=== PATIENT | male | born 1940 | race Caucasian/White ===

== ENCOUNTER 2020-07-08 20:00 | Inpatient (IN) | payer MEDICARE, MEDICAID, SELFPAY ==
[2020-07-08 20:07] VITALS: BP 77/44; PULSE 62; RESP 16; TEMP 36.3; O2SAT 92; BMI 19.8
--- NOTE | 2020-07-08 20:20 | XRR_ITS ---
PROCEDURE INFORMATION: Exam: XR Chest, 1 View Exam date and time: 07/08/2020 8:41 PM Age: 79 years old Clinical indication: Fever; Additional info: AMS TECHNIQUE: Imaging protocol: XR of the chest Views: 1 view. COMPARISON: CR Chest 2 views* [id number] 07/19/2013 2:19 PM FINDINGS: Lungs: Stable COPD . Interval appearance of cchf-gd-ibrsgupa peripheral opacities bilaterally most consistent with pneumonia. Pleural space: Unremarkable. No pleural effusion. No pneumothorax. Heart/Mediastinum: Unremarkable. No cardiomegaly. Vasculature: IVC filter. Bones/joints: Postoperative metallic fixation of the cervical spine with or without metallic artifact. XR/XR chest 1V portable [id number] IMPRESSION: Interval appearance of [id number] peripheral opacities bilaterally most consistent with pneumonia.
--- NOTE | 2020-07-08 20:20 | ECG_ITS ---
[facility] Test Date: 2020-07-08 Pat Name: Ricardo Washington Department: Room: Gender: Male Supervisor Graphite: : 1940 Requested By: Ignacia Pacheco Order Number: [id number] Hunter MD: Maye Tinsley M.D. Measurements Intervals [place] Rate: 61 P: 57 [place]: 177 QRS: 28 QRSD: 90 T: 112 QT: 484 QTc: 489 Interpretive Statements SINUS RHYTHM WITH OCCASIONAL SUPRAVENTRICULAR PREMATURE COMPLEXES NONSPECIFIC T-WAVE ABNORMALITY PROLONGED QT INTERVAL No previous ECG available for comparison Electronically Signed On 07-09-2020 18:22:37 PROBATION WORKER by Maye Tinsley M.D. [id number] f
--- NOTE | 2020-07-08 20:30 | W.ED.AMS ---
HPI - Altered Mental Status General: Chief Complaint: Altered Mental Status Stated Complaint: fever, no appetite, Time Seen by Provider: 07/08/20 20:19 History of Present Illness: HPI narrative: This patient is a 79-year-old male who comes in today with confusion and weakness. He has been running fevers per his for the past several days as well as having severe diarrhea. The history is very confusing. She said he had his gallbladder removed a couple of weeks ago but had recovered well. She was diagnosed with Covid. She does not recall what day that was but she said the health department told her she would be off quarantine on the and that the patient would be off quarantine on the . She also tells me that he was seen at the hospital in [place] with chest pains following his gallbladder surgery. I gather that his blood pressure may been low at that time because she said the nurse practitioner wanted to take him off his blood pressure medicine. Is not clear if they did that or not. His is also concerned that he may have taken 2 doses of his regular daily medicines this morning. He has been weak and ill for several days but the confusion started just today. The patient also has a history of thoracic and Abdominal aortic aneurysms. The abdominal aneurysms have been treated but the thoracic has not. He is on metoprolol 25 mg daily. He is also on plavix. complaint: altered mental status, confusion and weakness Onset (ago): day(s) (Several) Timing confirmed by: spouse Severity: severe Consistency of symptoms: Getting Worse Context: recent fever and other (Covid exposure) Review of Systems General: Reports: ROS unobtainable due to mental status [facility] ED PFSH: Medical History (Updated 07/09/20 @ 15:10 by Jeffery Lawton MD) Abdominal aortic aneurysm 3.2 cm in 2013 Chronic kidney disease Dysphagia Responsive to Cardizem Hypertension Spondylolisthesis at L5-S1 level Surgical History History of total knee arthroplasty Hx of cataract surgery Hx of spinal fusion Status post cholecystectomy Family History Other CAD (coronary artery disease) Cancer Family history of premature coronary artery disease Stroke Social History Smoking and tobacco status: former smoker Alcohol intake: never Lives independently: Yes Household members: spouse Housing: House Marital status: Physical Exam Const: GENERAL APPEARANCE: cooperative and comfortable HENMT: HEAD & SCALP: normal to inspection FACE & SINUS: normal facial exam Eye: GENERAL EYE: appearance normal, both eyes and all related structures Neck/C-Spine: COMMON NORMALS: supple, no meningeal signs and no JVD Chest: COMMONS NORMALS: normal inspection of the chest Resp: COMMON NORMALS: normal respiratory effort, No use of accessory muscles and clear to auscultation bilaterally AUSCULTATION: clear to auscultation bilaterally Cardio: COMMON NORMALS: no JVD, regular rate, regular rhythm and No murmurs present (Cardio) RATE: regular rate RHYTHM: regular rhythm GI: COMMON NORMALS: Normal to inspection, nondistended, normoactive bowel sounds present, Soft to palpation and non-tender INSPECTION: Yes normal to inspection AUSCULTATION: Yes normoactive bowel sounds PALPATION: Yes Soft to palpation Back/Pelvis: COMMON NORMALS: thoracic and lumbar spine normal to inspection Extremity: COMMON NORMALS: normal to inspection Neuro: COMMON NORMALS: moves all extremities, no focal motor deficits and no sensory deficits noted MENINGEAL SIGNS: Yes no meningeal signs Psych: SPEECH: Yes slow MOOD & AFFECT: Yes Flat affect present Skin: COMMON NORMALS: no rashes or lesions noted and turgor normal GENERAL SKIN EXAM: no rashes or lesions noted and turgor normal Course ED course: Patient had a room air sat of 80% on my initial evaluation. HR was 66 initially, then decreasing to the 40's at times. BP was 70 systolic initially. Patient was placed on oxygen and with resting and time his sat came up into the high 90's on 3 L NC. His BP increase with a 1 liter fluid bolus, but the settled at around 80 systolic. It is possible that he took double his usual metoprolol dose which could cause the bradycardia and hypotension. He is also likely dehydrated secondary to severe diarrhea for several days. CXR reflects a pneumonia type pattern that I feel is consistent with COVID. His inflammatory markers are up, consistent with COVID and he has been living with his who was symptomatic for COVID within the past two weeks. His rapid COVID swab was neg here - but I will continue to treat him as a PUI or positive patient. We have no beds here and I will try to transfer him to another facility for a viral ICU bed. I am hesitant to try to raise him BP much higher - given that he has a long standing thoracic aortic aneurysm. Renal function is elevated - and I don't have prior labs for comparison. Vital Signs: Vital signs: Vital Signs Temperature 97.8 F 07/10/20 00:00 Pulse Rate 53 L 07/10/20 03:15 Respiratory Rate 20 H 07/10/20 03:15 Blood Pressure 134/79 07/10/20 03:15 Pulse Oximetry 96 07/10/20 03:15 MDM - Altered Mental Status Lab Data: Labs: Lab Results 07/08/20 07/08/20 07/08/20 Range/Units 20:32 20:32 20:32 WBC 9.8 (4.0-10.0) 10^3/ uL RBC 3.85 L (4.1-5.3) 10^6/u L Hgb 11.9 (11.7-16.6) g/dL Hct 36.8 L (42.0-52.0) % MCV 95.6 H (80-94) fL MCH 30.9 (28.0-34.0) pg MCHC 32.3 (30.0-36.0) g/dL RDW 13.7 (12.1-15.1) % Plt Count 259 (130-400) 10^3/c mm MPV 10.4 (7.4-10.4) fL Neut % (Auto) 81.0 % Lymph % (Auto) 12.9 % [place] % (Auto) 5.2 % Eos % (Auto) 0.0 % Baso % (Auto) 0.1 % Neut # (Auto) 7.90 H (1.8-7.7) 10^3/u L Lymph # (Auto) 1.3 (0.8-4.8) 10^3/u L [place] # (Auto) 0.5 (0.2-0.9) 10^3/u L Eos # (Auto) 0.0 (0.0-0.8) 10^3/u L Baso # (Auto) 0.0 (0.0-0.1) 10^3/u L Nucleated RBC % (a uto) 0 % Nucleated RBCs # 0.0 /100WBC PT (12.1-14.9) SECO NDS INR (0.8-1.2) Fibrinogen (174-498) mg/dL D-Dimer (0-0.59) ug/mIFE U Specimen Type Sample Site ABG pH (7.35-7.45) ABG pCO2 (35-45) mmHg ABG pO2 (80.0-100.0) mmH g ABG HCO3 (22-26) mmol/L ABG Base Excess (-2.0-2.0) mmol/ L Nathaniel Test Hematocrit (42-52) % O2 Delivery Device O2 Liters/Min % Patient Support Specialist ID Sodium 140 (136-145) mmol/L Potassium 3.7 (3.5-5.1) mmol/L Chloride 98 (98-107) mmol/L Carbon Dioxide 26 (22-29) mmol/L Anion Gap 19.7 H (5-19) BUN 39 H (8-23) mg/dL Creatinine 2.0 H (0.7-1.2) mg/dL GFR Calculation Not Reportable Glucose 110 (65-115) mg/dL Calculated Osmolal ity 300 H (285-295) mOsm/k g Lactic Acid (0.5-2.2) mmol/L Calcium 9.0 (8.5-10.5) mg/dL Magnesium 2.2 (1.7-2.3) mg/dL Ferritin 1575 H (30-400) ng/mL Total Bilirubin 0.9 (0.15-1.2) mg/dL AST 22 (0-40) U/L ALT 11 (0-41) U/L Alkaline Phosphata se 79 (40-130) IU/L Ammonia 29 (16-60) umol/L Lactate Dehydrogen ase 385 H (135-225) U/L Creatine Kinase 45 (39-308) U/L Troponin T Baselin e (0-15) ng/L Troponin T Hi Sens 6Hr (0-15) ng/L Troponin T Hi Sens 6Hr Delta (0-12) ng/L C-Reactive Protein 196.2 H (0.0-4.9) mg/L Total Protein 6.7 (6.6-8.7) g/dL Albumin 3.6 (3.5-5.2) g/dL Globulin 3.1 (1.3-4.6) g/dL Lipase 371 H (13-60) U/L Procalcitonin 0.33 (0-0.5) ng/mL TSH (0.27-4.20) uIU/ mL Urine Color (Yellow) Urine Appearance (CLEAR) Urine pH (5-7) Ur Specific Gravit y (1.005-1.030) Urine Protein (Negative) Urine Glucose (UA) (Normal) Urine Ketones (Negative) Urine Blood (Negative) Urine Nitrate (Negative) Urine Bilirubin (Negative) Urine Urobilinogen (Negative) mg/dL Ur Leukocyte Christy ase (Negative) Urine RBC (0-2) /hpf Urine WBC (0-5) /hpf Ur Squamous Epith Cells (0-5) /hpf Amorphous Sediment Urine Bacteria (NONE) /hpf Ethyl Alcohol < 10 (0-10) mg/dL Influenza Type A A g (Negative) Influenza Type B A g (Negative) SARS-CoV-2 Ag (Rap id) (Negative) 07/08/20 07/08/20 07/08/20 Range/Units 20:32 20:32 20:32 WBC (4.0-10.0) 10^3/ uL RBC (4.1-5.3) 10^6/u L Hgb (11.7-16.6) g/dL Hct (42.0-52.0) % MCV (80-94) fL MCH (28.0-34.0) pg MCHC (30.0-36.0) g/dL RDW (12.1-15.1) % Plt Count (130-400) 10^3/c mm MPV (7.4-10.4) fL Neut % (Auto) % Lymph % (Auto) % [place] % (Auto) % Eos % (Auto) % Baso % (Auto) % Neut # (Auto) (1.8-7.7) 10^3/u L Lymph # (Auto) (0.8-4.8) 10^3/u L [place] # (Auto) (0.2-0.9) 10^3/u L Eos # (Auto) (0.0-0.8) 10^3/u L Baso # (Auto) (0.0-0.1) 10^3/u L Nucleated RBC % (a uto) % Nucleated RBCs # /100WBC PT 14.00 (12.1-14.9) SECO NDS INR 1.05 (0.8-1.2) Fibrinogen 541 H (174-498) mg/dL D-Dimer 4.75 H (0-0.59) ug/mIFE U Specimen Type Sample Site ABG pH (7.35-7.45) ABG pCO2 (35-45) mmHg ABG pO2 (80.0-100.0) mmH g ABG HCO3 (22-26) mmol/L ABG Base Excess (-2.0-2.0) mmol/ L Nathaniel Test Hematocrit (42-52) % O2 Delivery Device O2 Liters/Min % Patient Support Specialist ID Sodium (136-145) mmol/L Potassium (3.5-5.1) mmol/L Chloride (98-107) mmol/L Carbon Dioxide (22-29) mmol/L Anion Gap (5-19) BUN (8-23) mg/dL Creatinine (0.7-1.2) mg/dL GFR Calculation Glucose (65-115) mg/dL Calculated Osmolal ity (285-295) mOsm/k g Lactic Acid 2.0 (0.5-2.2) mmol/L Calcium (8.5-10.5) mg/dL Magnesium (1.7-2.3) mg/dL Ferritin (30-400) ng/mL Total Bilirubin (0.15-1.2) mg/dL AST (0-40) U/L ALT (0-41) U/L Alkaline Phosphata se (40-130) IU/L Ammonia (16-60) umol/L Lactate Dehydrogen ase (135-225) U/L Creatine Kinase (39-308) U/L Troponin T Baselin e 25 H (0-15) ng/L Troponin T Hi Sens 6Hr (0-15) ng/L Troponin T Hi Sens 6Hr Delta (0-12) ng/L C-Reactive Protein (0.0-4.9) mg/L Total Protein (6.6-8.7) g/dL Albumin (3.5-5.2) g/dL Globulin (1.3-4.6) g/dL Lipase (13-60) U/L Procalcitonin (0-0.5) ng/mL TSH (0.27-4.20) uIU/ mL Urine Color (Yellow) Urine Appearance (CLEAR) Urine pH (5-7) Ur Specific Gravit y (1.005-1.030) Urine Protein (Negative) Urine Glucose (UA) (Normal) Urine Ketones (Negative) Urine Blood (Negative) Urine Nitrate (Negative) Urine Bilirubin (Negative) Urine Urobilinogen (Negative) mg/dL Ur Leukocyte Christy ase (Negative) Urine RBC (0-2) /hpf Urine WBC (0-5) /hpf Ur Squamous Epith Cells (0-5) /hpf Amorphous Sediment Urine Bacteria (NONE) /hpf Ethyl Alcohol (0-10) mg/dL Influenza Type A A g (Negative) Influenza Type B A g (Negative) SARS-CoV-2 Ag (Rap id) (Negative) 07/08/20 07/08/20 07/08/20 Range/Units 20:32 20:40 21:02 WBC (4.0-10.0) 10^3/ uL RBC (4.1-5.3) 10^6/u L Hgb (11.7-16.6) g/dL Hct (42.0-52.0) % MCV (80-94) fL MCH (28.0-34.0) pg MCHC (30.0-36.0) g/dL RDW (12.1-15.1) % Plt Count (130-400) 10^3/c mm MPV (7.4-10.4) fL Neut % (Auto) % Lymph % (Auto) % [place] % (Auto) % Eos % (Auto) % Baso % (Auto) % Neut # (Auto) (1.8-7.7) 10^3/u L Lymph # (Auto) (0.8-4.8) 10^3/u L [place] # (Auto) (0.2-0.9) 10^3/u L Eos # (Auto) (0.0-0.8) 10^3/u L Baso # (Auto) (0.0-0.1) 10^3/u L Nucleated RBC % (a uto) % Nucleated RBCs # /100WBC PT (12.1-14.9) SECO NDS INR (0.8-1.2) Fibrinogen (174-498) mg/dL D-Dimer (0-0.59) ug/mIFE U Specimen Type Arterial Sample Site Radial, right ABG pH 7.48 H (7.35-7.45) ABG pCO2 34.4 L (35-45) mmHg ABG pO2 95.3 (80.0-100.0) mmH g ABG HCO3 25.6 (22-26) mmol/L ABG Base Excess 2.3 H (-2.0-2.0) mmol/ L Nathaniel Test Pos Hematocrit 34.6 L (42-52) % O2 Delivery Device Nc O2 Liters/Min 3.0 % Patient Support Specialist ID [email or web address] Sodium (136-145) mmol/L Potassium (3.5-5.1) mmol/L Chloride (98-107) mmol/L Carbon Dioxide (22-29) mmol/L Anion Gap (5-19) BUN (8-23) mg/dL Creatinine (0.7-1.2) mg/dL GFR Calculation Glucose (65-115) mg/dL Calculated Osmolal ity (285-295) mOsm/k g Lactic Acid (0.5-2.2) mmol/L Calcium (8.5-10.5) mg/dL Magnesium (1.7-2.3) mg/dL Ferritin (30-400) ng/mL Total Bilirubin (0.15-1.2) mg/dL AST (0-40) U/L ALT (0-41) U/L Alkaline Phosphata se (40-130) IU/L Ammonia (16-60) umol/L Lactate Dehydrogen ase (135-225) U/L Creatine Kinase (39-308) U/L Troponin T Baselin e (0-15) ng/L Troponin T Hi Sens 6Hr (0-15) ng/L Troponin T Hi Sens 6Hr Delta (0-12) ng/L C-Reactive Protein (0.0-4.9) mg/L Total Protein (6.6-8.7) g/dL Albumin (3.5-5.2) g/dL Globulin (1.3-4.6) g/dL Lipase (13-60) U/L Procalcitonin (0-0.5) ng/mL TSH 1.76 (0.27-4.20) uIU/ mL Urine Color (Yellow) Urine Appearance (CLEAR) Urine pH (5-7) Ur Specific Gravit y (1.005-1.030) Urine Protein (Negative) Urine Glucose (UA) (Normal) Urine Ketones (Negative) Urine Blood (Negative) Urine Nitrate (Negative) Urine Bilirubin (Negative) Urine Urobilinogen (Negative) mg/dL Ur Leukocyte Christy ase (Negative) Urine RBC (0-2) /hpf Urine WBC (0-5) /hpf Ur Squamous Epith Cells (0-5) /hpf Amorphous Sediment Urine Bacteria (NONE) /hpf Ethyl Alcohol (0-10) mg/dL Influenza Type A A g (Negative) Influenza Type B A g (Negative) SARS-CoV-2 Ag (Rap id) Negative (Negative) 07/08/20 07/09/20 07/09/20 Range/Units 21:02 02:24 07:30 WBC (4.0-10.0) 10^3/ uL RBC (4.1-5.3) 10^6/u L Hgb (11.7-16.6) g/dL Hct (42.0-52.0) % MCV (80-94) fL MCH (28.0-34.0) pg MCHC (30.0-36.0) g/dL RDW (12.1-15.1) % Plt Count (130-400) 10^3/c mm MPV (7.4-10.4) fL Neut % (Auto) % Lymph % (Auto) % [place] % (Auto) % Eos % (Auto) % Baso % (Auto) % Neut # (Auto) (1.8-7.7) 10^3/u L Lymph # (Auto) (0.8-4.8) 10^3/u L [place] # (Auto) (0.2-0.9) 10^3/u L Eos # (Auto) (0.0-0.8) 10^3/u L Baso # (Auto) (0.0-0.1) 10^3/u L Nucleated RBC % (a uto) % Nucleated RBCs # /100WBC PT (12.1-14.9) SECO NDS INR (0.8-1.2) Fibrinogen (174-498) mg/dL D-Dimer (0-0.59) ug/mIFE U Specimen Type Sample Site ABG pH (7.35-7.45) ABG pCO2 (35-45) mmHg ABG pO2 (80.0-100.0) mmH g ABG HCO3 (22-26) mmol/L ABG Base Excess (-2.0-2.0) mmol/ L Nathaniel Test Hematocrit (42-52) % O2 Delivery Device O2 Liters/Min % Patient Support Specialist ID Sodium (136-145) mmol/L Potassium (3.5-5.1) mmol/L Chloride (98-107) mmol/L Carbon Dioxide (22-29) mmol/L Anion Gap (5-19) BUN (8-23) mg/dL Creatinine (0.7-1.2) mg/dL GFR Calculation Glucose (65-115) mg/dL Calculated Osmolal ity (285-295) mOsm/k g Lactic Acid (0.5-2.2) mmol/L Calcium (8.5-10.5) mg/dL Magnesium (1.7-2.3) mg/dL Ferritin (30-400) ng/mL Total Bilirubin (0.15-1.2) mg/dL AST (0-40) U/L ALT (0-41) U/L Alkaline Phosphata se (40-130) IU/L Ammonia (16-60) umol/L Lactate Dehydrogen ase (135-225) U/L Creatine Kinase (39-308) U/L Troponin T Baselin e (0-15) ng/L Troponin T Hi Sens 6Hr 15.67 H (0-15) ng/L Troponin T Hi Sens 6Hr Delta -9.33 L (0-12) ng/L C-Reactive Protein (0.0-4.9) mg/L Total Protein (6.6-8.7) g/dL Albumin (3.5-5.2) g/dL Globulin (1.3-4.6) g/dL Lipase (13-60) U/L Procalcitonin (0-0.5) ng/mL TSH (0.27-4.20) uIU/ mL Urine Color Yellow (Yellow) Urine Appearance Clear (CLEAR) Urine pH 5 (5-7) Ur Specific Gravit y 1.020 (1.005-1.030) Urine Protein Trace (Negative) Urine Glucose (UA) Norm (Normal) Urine Ketones Negative (Negative) Urine Blood Neg (Negative) Urine Nitrate Negative (Negative) Urine Bilirubin Neg (Negative) Urine Urobilinogen Norm (Negative) mg/dL Ur Leukocyte Christy ase Negative (Negative) Urine RBC None (0-2) /hpf Urine WBC None (0-5) /hpf Ur Squamous Epith Cells None (0-5) /hpf Amorphous Sediment Not Reportable Urine Bacteria 1+ H (NONE) /hpf Ethyl Alcohol (0-10) mg/dL Influenza Type A A g Negative (Negative) Influenza Type B A g Negative (Negative) SARS-CoV-2 Ag (Rap id) (Negative) Discharge Plan Discharge Patient Disposition: Admitted As Inpatient Admit Provider: Jeffery Lawton Clinical Impression: Acute dehydration, Suspected 2019 novel coronavirus infection Altered mental status Qualifiers: Altered mental status type: unspecified Qualified Code(s): R41.82 - Altered mental status, unspecified Condition: Stable Coding Level of Care Code ED Wood Polisher for [facility] Fwd Exam Comprehensive
[2020-07-08] MEDS: dexamethasone 4 mg/mL INJ 6 MG IVP (20:53)
[2020-07-08] MEDS: sodium chloride 0.9% 1,000 ML 999 ML IV (20:53)
[2020-07-08 20:58] LABS: ABG PCO2 34.4 mmHg (35-45); ABG PH Result 7.48 (7.35-7.45); Arterial Blood Gas Hematocrit 34.6 % (42-52); Base Excess ABG 2.3 mmol/L (-2.0-2.0); Blood Gas Allen Test Pos; Blood Gas Sample Site Radial, right; Blood Gas Sample Type Arterial; HCO3 ABG 25.6 mmol/L (22-26); Oxygen Device NC; PO2 ABG 95.3 mmHg (80.0-100.0)
[2020-07-08 21:01] LABS: Basophils % 0.1 %; Hematocrit 36.8 % (42.0-52.0); Hemoglobin 11.9 g/dL (11.7-16.6); Lymphocytes # 1.3 10^3/uL (0.8-4.8); Lymphocytes % 12.9 %; Mean Corpuscular HGB Conc 32.3 g/dL (30.0-36.0); Mean Corpuscular Hemoglobin 30.9 pg (28.0-34.0); Mean Corpuscular Volume 95.6 fL (80-94); Mean Platelet Volume 10.4 fL (7.4-10.4); Monocytes # 0.5 10^3/uL (0.2-0.9); Monocytes % 5.2 %; Nucleated Red Blood Cells % 0 %; Platelet Count 259 10^3/cmm (130-400); Red Blood Count 3.85 10^6/uL (4.1-5.3); Red Cell Distribution Width 13.7 % (12.1-15.1); White Blood Count 9.8 10^3/uL (4.0-10.0)
[2020-07-08 21:10] VITALS: BP 77/52; PULSE 54; RESP 10; O2SAT 98
[2020-07-08 21:11] LABS: INR 1.05 (0.8-1.2)
[2020-07-08 21:12] LABS: Fibrinogen 541 mg/dL (174-498)
[2020-07-08 21:13] VITALS: BP 87/59
[2020-07-08 21:19] LABS: Troponin(5th) Baseline 25 ng/L (0-15)
[2020-07-08 21:21] LABS: D Dimer 4.75 ug/mIFEU (0-0.59)
[2020-07-08 21:26] LABS: Procalcitonin 0.33 ng/mL (0-0.5)
[2020-07-08 21:33] LABS: Influenza A by IFA Negative (Negative); Influenza B by IFA Negative (Negative); SARS Covid-2 Antigen Negative (Negative)
[2020-07-08 21:35] LABS: Ammonia 29 umol/L (16-60)
[2020-07-08 21:38] LABS: Alanine Aminotransferase 11 U/L (0-41); Albumin Level 3.6 g/dL (3.5-5.2); Alkaline Phosphatase 79 IU/L (40-130); Blood Urea Nitrogen 39 mg/dL (8-23); C Reactive Protein 196.2 mg/L (0.0-4.9); Carbon Dioxide 26 mmol/L (22-29); Chloride 98 mmol/L (98-107); Creatine Phosphokinase 45 U/L (39-308); Globulin 3.1 g/dL (1.3-4.6); Glucose 110 mg/dL (65-115); Magnesium 2.2 mg/dL (1.7-2.3); Osmolality Calculated 300 mOsm/kg (285-295); Sodium 140 mmol/L (136-145); Total Bilirubin 0.9 mg/dL (0.15-1.2); Total Protein 6.7 g/dL (6.6-8.7)
[2020-07-08 21:41] VITALS: BP 79/49; PULSE 57; RESP 22; O2SAT 100
[2020-07-08 21:44] LABS: Alcohol Level < 10 mg/dL (0-10)
[2020-07-08 21:45] LABS: Anion Gap 19.7 (5-19); Aspartate Amino Transferase 22 U/L (0-40); Potassium 3.7 mmol/L (3.5-5.1)
[2020-07-08 21:53] LABS: Ferritin 1575 ng/mL (30-400); Lipase 371 U/L (13-60)
[2020-07-08 22:05] VITALS: BP 79/49; PULSE 47; RESP 12; O2SAT 98
[2020-07-08 22:10] LABS: Lactate Dehydrogenase 385 U/L (135-225)
--- NOTE | 2020-07-08 22:20 | ECG_ITS ---
[facility] Test Date: 2020-07-08 Pat Name: Ricardo Washington Department: Room: Gender: Male Straw Boss: : 1940 Requested By: Ignacia Pacheco Order Number: [id number] Hunter MD: Maye Tinsley M.D. Measurements Intervals [place] Rate: 53 P: 82 CO: 202 QRS: 2 QRSD: 85 T: 21 QT: 448 QTc: 424 Interpretive Statements SINUS BRADYCARDIA WITH OCCASIONAL SUPRAVENTRICULAR PREMATURE COMPLEXES MODERATE T-WAVE ABNORMALITY, CONSIDER INFERIOR ISCHEMIA [-0.1+ mV T WAVE IN II/aVF] Compared to ECG 07/08/2020 20:30:28 Possible ischemia now present Sinus rhythm no longer present Prolonged QT interval no longer present T-wave abnormality still present Electronically Signed On 07-09-2020 18:33:26 TUNNEL KILN OPERATOR by Maye Tinsley M.D. [id number] f
[2020-07-08] MEDS: sodium chloride 0.9% 1,000 ML 100 ML IV (22:25)
[2020-07-08 23:00] VITALS: BP 72/50; PULSE 54; RESP 19; O2SAT 97
--- NOTE | 2020-07-08 23:01 | PC.NURSE ---
one wet adult brief changed
--- NOTE | 2020-07-08 23:11 | PM.CONSULT ---
Providers/Reason For Consult Consulting Physican/Specialty*: Hospitalist Reason for Consult*: Bradycardia and hypotension Primary Care Provider: Steven Ackerman MD History of Present Illness History of Present Illness Ricardo Washington is a 79 year old male who has history of abdominal aorta aneurysm, ascending aorta aneurysm, esophageal motility disorder, hypertension, who presented to the hospital for chief complaint of febrile episode and confusion. Patient's tested positive with COVID-19 on 06/27 and was in quarantine till , patient was advised to quarantine until . He presented to the hospital because of febrile episodes diarrhea and confusion. is at the bedside who is endorsing that recently about 2 weeks ago he had cholecystectomy at [facility], after that he was admitted for chief complaint of chest pain, she is not sure whether his stress test was negative but she was not updated about any positive results. At home for last 2 to 3 days he has been having loose stools, his p.o. intake has decreased, he has been spiking fever, he did not vomit or complaint of abdominal pain. Today he seemed very confused and kept staring at the ceiling and that prompted his visit to the ER. On arrival in the ER his heart rate was in 40s, blood pressure systolic 70 mmHg, he was put on 3 L nasal cannula for hypoxia on room air, he was given 1 L normal saline bolus, Secondary to bradycardia and hypotension he was started on dopamine drip, at the time my evaluation heart rate was in 45-50 range, mean arterial pressure 60 mmHg Patient was not complaining of any active chest pain, however he seemed incoherent, most of the history was taken from his , I have requested TSH, EKG was reviewed with Dr. Villalpando, it is showing sinus bradycardia, prominent P waves no junctional rhythm was noted or third-degree block As per the he might have taken 2 doses of metoprolol at home, we will give him 1 dose of glucagon as well to see the response He had received Decadron and remdesivir Review of Systems General: Reports: ROS unobtainable due to medical condition (Hypoactive delirium) Meds/Allergies Home Medications and Allergies Home Medications Medication Instructions Recorded Confirmed Last Taken Type atorvastatin 40 mg PO DAILY 07/08/20 07/08/20 Unknown History clonazepam 1 mg PO DAILY 07/08/20 07/08/20 Unknown History clopidogrel [Plavix] 75 mg PO DAILY 07/08/20 07/08/20 Unknown History diltiazem HCl 180 mg PO DAILY 07/08/20 07/08/20 Unknown History hydrocodone-acetaminophen [Aspers] 1 tab PO DIRECTED PRN 07/08/20 07/08/20 Unknown History lisinopril 25 mg PO DAILY 07/08/20 07/08/20 Unknown History metoprolol tartrate 25 mg PO DAILY 07/08/20 07/08/20 Unknown History nitroglycerin 0.4 mg SUBLINGUAL Q5M PRN 07/08/20 07/08/20 Unknown History omeprazole 20 mg PO DAILY 07/08/20 07/08/20 Unknown History tamsulosin 0.4 mg PO DAILY 07/08/20 07/08/20 Unknown History Allergies Allergy/AdvReac Type Severity Reaction Status Date / Time No Known Allergies Allergy Verified 07/08/20 21:17 Current Medications Current Medications Generic Name Dose Route Start Last Admin Trade Name Freq PRN Reason Stop Dose Admin remdesivir (EUA) 200 mg/ 100 mls @ 100 mls/hr 07/08/20 22:15 07/08/20 22:26 Sodium Chloride IV 07/08/20 23:14 100 mls/hr ONCE ONE Administration Sodium Chloride 1,000 mls @ 100 mls/hr 07/08/20 22:15 07/08/20 22:25 Sodium Chloride 0.9% IV 100 mls/hr .Q10H LAURA Administration PFSH Acute PFSH: Medical History Abdominal aortic aneurysm 3.2 cm in 2013 Dysphagia Responsive to Cardizem Hypertension Spondylolisthesis at L5-S1 level Surgical History History of total knee arthroplasty Hx of cataract surgery Hx of spinal fusion Status post cholecystectomy Family History Other CAD (coronary artery disease) Cancer Family history of premature coronary artery disease Stroke Social History Smoking and tobacco status: former smoker Alcohol intake: never Lives independently: Yes Household members: spouse Housing: House Marital status: Vitals/I&O/Wt Last Vital Signs Temp 97.3 F L 07/08/20 20:07 Pulse 54 L 07/08/20 23:00 Resp 19 H 07/08/20 23:00 BP 72/50 07/08/20 23:00 Pulse Ox 97 07/08/20 23:00 Weight last 48 hrs Weight 68.039 kg Physical Exam Narrative: EXAM NARRATIVE: Frail elderly male Currently saturating well on 3 to nasal cannula No active respiratory distress Appears dehydrated Appears more than stated age Multiple macular rash all over his scalp and face S1, S2 sinus bradycardia, clinically dehydrated Abdomen soft nontender No acute respiratory distress Patient is only oriented to himself, neuro exam is limited, EOMI Lower extremity no edema gangrene or ulcer No facial asymmetry, patient is verbally redirectable Appears very lethargic and tired Data Micro: Micro: Microbiology 07/08/20 20:49 Blood Culture - Pr eliminary Blood SPECIMEN [facility] YAS[facility]Y 07/08/20 20:42 Blood Culture - Pr eliminary Blood SPECIMEN [facility] A&P Assessment and plan (1) Acute dehydration: Status: Acute (2) Suspected 2019 novel coronavirus infection: Status: Acute (3) Altered mental status: Status: Acute Qualifiers: Altered mental status type: unspecified Qualified Code(s): R41.82 - Altered mental status, unspecified (4) Sinus bradycardia: Status: Acute (5) Chronic kidney disease: Status: Acute Additional A&P Information Hypoactive delirium secondary to dehydration Suspected COVID-19 However Covid antigen is negative, would recommend Covid PCR Status post remdesivir and Decadron in the ER Procalcitonin not high, I would avoid adding any antibacterials at this point He is not septic Check TSH level, B12 level check UA Symptomatic sinus bradycardia Hypotension with bradycardia, sinus rhythm, no third-degree block or junctional rhythm noted Start dopamine infusion Patient seems confused Trial of glucagon in consideration of beta-eveline toxicity Patient was taking AV aishwarya blocking agent at home, at this point no acute indication for pacemaker however monitor overnight on telemetry and transfer to ICU as soon as possible First troponin not significantly high, patient not complaining of any chest pain Chronic kidney disease no acute exacerbation this seems to be his baseline creatinine which is around 2 Follow-up with UA High D-dimer Due to chronic kidney disease would avoid giving therapeutic dose of Lovenox, Not a candidate for CTA He might benefit from heparin infusion considering hypercoagulable state of COVID-19 Goals of care discussed with the : Full code Cardiac diet DVT prophylaxis Heparin Carries high risk of mortality and morbidity, poor prognostic factors such as high D-dimer, age, hypoxia and chronic kidney disease Consult Attestations Medical Necessity Statement: Immediate transfer to ICU as soon as possible Time Spent in Patient Care: (>than 50% of time spent in counselling and/or direct pt care on unit). 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
[2020-07-09] VITALS (57 sets, daily range): BP systolic 78–152; BP diastolic 14–126; PULSE 44–77; RESP 0–26; TEMP 36.5–37; O2SAT 91–99
[2020-07-09] MEDS: DOPamine drip 400 MG/250 ML PREMIX 12.8 MG IV (00:17)
[2020-07-09 01:25] LABS: Thyroid Stimulating Hormone 1.76 uIU/mL (0.27-4.20)
--- NOTE | 2020-07-09 02:20 | ECG_ITS ---
[facility] Test Date: 2020-07-08 Pat Name: Ricardo Washington Department: Room: Gender: Male Educational/Development Assistant: : 1940 Requested By: Ignacia Pacheco Order Number: [id number] Hunter MD: Maye Tinsley M.D. Measurements Intervals [place] Rate: 61 P: 57 SD: 177 QRS: 28 QRSD: 90 T: 112 QT: 484 QTc: 489 Interpretive Statements SINUS RHYTHM WITH OCCASIONAL SUPRAVENTRICULAR PREMATURE COMPLEXES NONSPECIFIC T-WAVE ABNORMALITY PROLONGED QT INTERVAL No previous ECG available for comparison Electronically Signed On 07-09-2020 18:31:18 MACADAM RAKER by Maye Tinsley M.D. [email or web address]/[id number] f
[2020-07-09 02:53] LABS: Troponin 5 6HR 15.67 ng/L (0-15)
--- NOTE | 2020-07-09 07:36 | PC.NURSE ---
Report received from Son Matias RN. Rounded on pt, he is resting well in bed with at bedside. Per VO from Dr Frias, pt straight cathed for urine. 620ml of dark, tea-colored urine returned. Pt tolerated procedure well. Pt is alert and oriented to person only. Per pt , pt began getting confused yesterday. Pt denies pain or needs at this time. Clean brief and nydia-care provided to pt at this time. Pt repositioned, call light in reach. Pt offered recliner and warm blankets, updated on wait for accepting facility. All questions answered. Dopamine drip hanging at 10mcg/kg/min. Pt tolerating well.
[2020-07-09] MEDS: sodium chloride 0.9% 1,000 ML 150 ML IV (07:54)
--- NOTE | 2020-07-09 08:02 | PC.NURSE ---
Pt 98% on 4LNC, titrated to 3LNC.
[2020-07-09 08:30] LABS: Add Urine Microscopic? YES; Bilirubin Urine Neg (Negative); Blood Urine Neg (Negative); Glucose Urine UA Norm (Normal); Ketones Urine Negative (Negative); Leukocyte Esterase Urine Negative (Negative); Nitrate Urine Negative (Negative); Protein Urine Trace (Negative); Urine Appearance Clear (CLEAR); Urine Color Yellow (Yellow); Urobilinogen Urine Norm (Negative); pH Urine 5 (5-7)
[2020-07-09 08:31] LABS: Add Urine Culture? No; Bacteria Urine 1+ /hpf
--- NOTE | 2020-07-09 08:53 | PC.NURSE ---
Pt saturating 99% on 3LNC, titrated to 2LNC. Pt resting comfortably with at bedside. No needs at this time, call light in reach.
[2020-07-09] MEDS: DOPamine drip 400 MG/250 ML PREMIX 25.5 MG IV (09:44)
--- NOTE | 2020-07-09 11:16 | PC.NURSE ---
Rounded on pt, CMP drawn, labeled and sent to lab. Pt was incontinent of urine, bed sheets changed, nydia care provided, clean brief applied and pt repositioned for comfort. Pt and updated on wait for bed. All questions answered. Pt has call light in reach and no needs at this time.
[2020-07-09 11:45] LABS: Alanine Aminotransferase 9 U/L (0-41); Albumin Level 3.3 g/dL (3.5-5.2); Alkaline Phosphatase 73 IU/L (40-130); Anion Gap 17.4 (5-19); Aspartate Amino Transferase 17 U/L (0-40); Blood Urea Nitrogen 34 mg/dL (8-23); Calcium 8.5 mg/dL (8.5-10.5); Carbon Dioxide 24 mmol/L (22-29); Chloride 104 mmol/L (98-107); Globulin 3.5 g/dL (1.3-4.6); Glucose 151 mg/dL (65-115); Osmolality Calculated 305 mOsm/kg (285-295); Potassium 3.4 mmol/L (3.5-5.1); Sodium 142 mmol/L (136-145); Total Bilirubin 0.6 mg/dL (0.15-1.2); Total Protein 6.8 g/dL (6.6-8.7)
[2020-07-09] MEDS: lanolin oint 7 gm 1 APPLIC TOPICAL (11:49)
--- NOTE | 2020-07-09 12:44 | PC.NURSE ---
Pt changed over to ICU bed for comfort. Pt given clean brief.
[2020-07-09] MEDS: sodium chloride 0.9% 1,000 ML 100 ML IV (14:26)
--- NOTE | 2020-07-09 14:33 | PC.NURSE ---
Dr Lawton at bedside. Dobutamine drip decreased to 5mcg/kg/hr per VO by Dr Lawton.
--- NOTE | 2020-07-09 14:46 | PM.PN ---
Subjective Subjective: Interval history: Patient's mental status much improved. He is more alert and oriented. He denies shortness of breath or chest pain. He denies abdominal pain. He just recently had cholecystectomy performed and at bedside reports that shortly prior to that he had biliary stent placed. His abdominal exam is benign. While hospitalized at [facility] he had chest pain and had cardiac evaluation. He had 2 recent PCI's performed in 2018 and last one in August 2019. His cardiac work-up did not trigger further coronary angiogram. Patient's troponin is slightly elevated and appears to be related to acute kidney injury. He had 600 mL of urine on straight cath therefore Tinajero catheter was placed. His initial urine was very dark neftali in color. After initiation of dopamine drip patient's heart rate improved to 70s. Blood pressure is in 130s over 70s as. Apparently patient was unable to eat in the last 2 days and during my evaluation in emergency department he reports being very hungry and wants to eat something. His urine does not appear to indicate UTI. His liver enzymes are unremarkable. He has minimally elevated lipase. Patient reports that at [facility] when he was given nitroglycerin drip it did not improve patient's chest pain. Patient clinically does appear dry. at bedside reports that patient could possibly take more than once his beta-eveline because of confusion. Patient does not use oxygen at home. He was initially placed on 4 L and this was brought down to 2 L shortly prior to my evaluation. Patient is saturating in the mid 90s on 2 L. Patient's kidney function significantly improved and creatinine is down to 1.3. Patient shows evidence of elevated inflammatory markers. He is in respiratory alkalosis and along with bradycardia, hypoxia and hypotension is concerning for pulmonary emboli especially in view of recent surgery. Vitals/I&O/Wt Last Vital Signs Temp 97.3 F L 07/08/20 20:07 Pulse 72 07/09/20 14:33 Resp 18 07/09/20 14:33 BP 139/79 07/09/20 14:33 Pulse Ox 97 07/09/20 14:33 07/08/20 07/09/20 07/09/20 22:59 06:59 14:59 Intake Total 1329.907 / 3525.596 1481.493 / 2142.493 Balance 1329.907 / 6424.821 0786.493 / 2141.493 Weight last 48 hrs Weight 68.039 kg Physical Exam Const: COMMON NORMALS: no acute distress and patient oriented x3 Resp: COMMON NORMALS: normal respiratory effort and clear to auscultation bilaterally AUSCULTATION: clear to auscultation bilaterally Cardio: COMMON NORMALS: regular rate, regular rhythm and S2 normal heart sound present RATE: regular rate RHYTHM: regular rhythm HEART SOUNDS: S2 normal heart sound present OTHER: No lower extremity edema GI: COMMON NORMALS: Normal to inspection, nondistended, normoactive bowel sounds present, Soft to palpation and non-tender PALPATION: Yes Soft to palpation Neuro: COMMON NORMALS: patient oriented x3 and no focal motor deficits Urinary Catheter Management^: Tinajero: Cath Placed During This Visit: yes Reason for Continuing Indwelling Catheter: Accurate Measurement of Urinary Output in Critically Ill Patients Urinary Catheter Date of Insertion: 07/09/20 Urinary Catheter Time of Insertion: 13:41 Data : 07/08/20 20:32 07/09/20 11:10 Micro: Microbiology 07/08/20 20:49 Blood Culture - Preliminary Blood SPECIMEN COLLECTED 07/08/20 20:42 Blood Culture - Preliminary Blood SPECIMEN COLLECTED A&P Assessment and plan (1) Acute dehydration: Status: Acute (2) Suspected 2019 novel coronavirus infection: Status: Acute (3) Altered mental status: Improved Status: Acute Qualifiers: Altered mental status type: unspecified Qualified Code(s): R41.82 - Altered mental status, unspecified (4) Sinus bradycardia: Multiple possible etiologies including PE and medication induced Status: Acute (5) Chronic kidney disease: Status: Acute (6) Acute kidney injury: Present on admission Status: Acute (7) Urinary retention due to benign prostatic hyperplasia: Present on admission Status: Acute (8) Hypokalemia: Not present on admission, secondary to IV hydration Status: Acute (9) Hypotension: Likely multifactorial with dehydration and possibly PE and medications playing a role. Status: Acute (10) Chest pain: Patient had chest pain prior to admission. GI versus cardiac currently considered. Status: Acute (11) Acute respiratory failure with hypoxia: Status: Acute Additional A&P Information PLAN: Awaiting for bed availability in ICU to admit patient. Since patient's kidney function improved I will proceed with CTA of chest to rule out PE. Should there be evidence of PE will initiate therapeutic anticoagulation. Risks and benefits were discussed at length with patient and at bedside given known chronic aortic dissection. We will obtain echocardiogram to evaluate wall motion and ejection fraction. Patient currently clinically not in heart failure. Start patient on Protonix. We will wean off dopamine drip as blood pressure and heart rate permits. Replete potassium. Awaiting COVID-19 test. Repeat lipase tomorrow. Patient does not appear to have pancreatitis. Lipase elevation is likely intestinal in origin. Monitor on telemetry. We will switch patient's fluids to LR at 75 mill per hour. Keep Tinajero catheter in until patient's blood pressure improves and we can start patient on his home Flomax medication and possibly uptitrate to twice daily. Attestations Medical Necessity Statement*: Patient with acute hypoxic respiratory failure, hypotension and bradycardia requires close ICU monitoring and treatment. I expect patient will require more than 2 midnights. Time Spent in Patient Care: Greater than 35 minutes Coding Level of Care Code Acute Programmer Developer for [facility] Fwd Diagnoses Acute dehydration E86.0 Suspected 2019 novel coronavirus infection Z20.828 Altered mental status R41.82 Altered mental status type: unspecified Sinus bradycardia R00.1 Chronic kidney disease N18.9 Acute kidney injury N17.9 Urinary retention due to benign prostatic hyperplasia N40.1; R33.8 Hypokalemia E87.6 Hypotension I95.9 Chest pain R07.9 Acute respiratory failure with hypoxia J96.01
--- NOTE | 2020-07-09 14:54 | CTR_ITS ---
PROCEDURE INFORMATION: Exam: CT Angiography Chest With Contrast Exam date and time: 07/09/2020 2:59 PM Age: 79 years old Clinical indication: Shortness of breath; Prior surgery; Surgery type: Gb x 1 week. Aaa; Patient HX: Covid +; Additional info: Hypoxia, recent surgery, concern for pe TECHNIQUE: Imaging protocol: Computed tomographic angiography of the chest with intravenous contrast. 3D rendering (Not supervised by radiologist): MIP and/or 3D reconstructed images were created by the technologist. Radiation optimization: All CT scans at this facility use at least one of these dose optimization techniques: automated exposure control; mA and/or kV adjustment per patient size (includes targeted exams where dose is matched to clinical indication); or iterative reconstruction. Contrast material: VISI 320; Contrast volume: 70 ml; Contrast route: INTRAVENOUS (IV); COMPARISON: CR XR chest 1V portable [id number] 07/08/2020 8:26 PM RADIATION DOSE METRICS: Total DLP (mGy-cm): 502.32 FINDINGS: Pulmonary arteries: Pulmonary arteries are well opacified. Pulmonary arteries are normal in caliber. No filling defects are demonstrated. No evidence of pulmonary embolism. Aorta: Thoracic aorta is diffusely dilated. Aneurysmal dilatation of the aortic arch, which measures 5.1 cm in diameter. Opacification of the aorta is limited. No aortic dissection demonstrated. Lungs: Centrilobular emphysema noted in the lungs bilaterally. Ground-glass infiltrates are seen in the periphery of both lungs, consistent with nonspecific viral pneumonia. Pleural space: No pleural effusion or pneumothorax noted. Heart: Mild cardiomegaly. No right ventricular enlargement. No pericardial effusion. Lymph nodes: Calcified subcarinal and left hilar lymph nodes, consistent with old granulomatous disease. Bones/joints: Postop change of the lower cervical spine noted. Degenerative spine changes. No acute osseous abnormality. Soft tissues: The soft tissues appear unremarkable. CT/CT angio chest PE protcl [id number] IMPRESSION: 1. No evidence of pulmonary embolism. 2. Thoracic aorta is diffusely dilated. Aneurysmal dilatation of the aortic arch, which measures 5.1 cm in diameter. Opacification of the aorta is limited. No aortic dissection demonstrated. 3. Centrilobular emphysema noted in the lungs bilaterally. Ground-glass infiltrates are seen in the periphery of both lungs, consistent with nonspecific viral pneumonia. Radiation Dose CTDIVOL = (mGy): DLP = 502.32 (mGy-cm)
[2020-07-09] MEDS: pantoprazole 40 mg SDV IVP (15:10)
--- NOTE | 2020-07-09 15:14 | PC.NURSE ---
US being done at bedside.
[2020-07-09] MEDS: lactated ringers 1,000 ML 75 ML IV (15:24)
[2020-07-09] MEDS: enoxaparin 30 mg/0.3 mL Syringe SUBCUT (15:24)
--- NOTE | 2020-07-09 16:20 | PC.NURSE ---
Have attempted 3 times to call report to ICU, initially got no answer, most recently was told nurse would have to call back.
--- NOTE | 2020-07-09 16:45 | PC.NURSE ---
Report received from Carlene PINEDO from
[2020-07-09] MEDS: iodixanol 320 mg/mL 100mL Btl IV (17:15)
[2020-07-10] VITALS (68 sets, daily range): BP systolic 87–180; BP diastolic 58–95; PULSE 38–69; RESP 10–29; TEMP 36.3–37.1; O2SAT 90–99
[2020-07-10] MEDS: lactated ringers 1,000 ML 75 ML IV ×2 (03:03→18:14)
[2020-07-10 04:56] LABS: Basophils % 0.1 %; Hematocrit 31.8 % (42.0-52.0); Hemoglobin 10.3 g/dL (11.7-16.6); Lymphocytes # 0.6 10^3/uL (0.8-4.8); Lymphocytes % 7.2 %; Mean Corpuscular HGB Conc 32.4 g/dL (30.0-36.0); Mean Corpuscular Hemoglobin 30.7 pg (28.0-34.0); Mean Corpuscular Volume 94.9 fL (80-94); Mean Platelet Volume 10.5 fL (7.4-10.4); Monocytes # 0.5 10^3/uL (0.2-0.9); Monocytes % 6.1 %; Neutrophils # 7.55 10^3/uL (1.8-7.7); Neutrophils % 85.9 %; Nucleated Red Blood Cells % 0 %; Platelet Count 242 10^3/cmm (130-400); Red Blood Count 3.35 10^6/uL (4.1-5.3); Red Cell Distribution Width 13.5 % (12.1-15.1); White Blood Count 8.8 10^3/uL (4.0-10.0)
[2020-07-10 05:37] LABS: Alanine Aminotransferase 9 U/L (0-41); Alkaline Phosphatase 67 IU/L (40-130); Anion Gap 13.7 (5-19); Aspartate Amino Transferase 18 U/L (0-40); Blood Urea Nitrogen 29 mg/dL (8-23); Calcium 8.9 mg/dL (8.5-10.5); Carbon Dioxide 27 mmol/L (22-29); Chloride 107 mmol/L (98-107); Globulin 2.8 g/dL (1.3-4.6); Glucose 126 mg/dL (65-115); Lipase 101 U/L (13-60); Magnesium 1.8 mg/dL (1.7-2.3); Osmolality Calculated 305 mOsm/kg (285-295); Potassium 3.7 mmol/L (3.5-5.1); Sodium 144 mmol/L (136-145); Total Bilirubin 0.4 mg/dL (0.15-1.2); Total Protein 5.8 g/dL (6.6-8.7)
--- NOTE | 2020-07-10 07:00 | USCV_ITS ---
Padmini Ricardo Age: 79 Gender: M : 1940 Exam Date: 07/10/2020 07:09 Ordering Phys: Jeffery Lawton MD Technologist: Ezio Downey Exam Location: [facility] Indication: AORTIC STENOSIS BP: 128 / 77 HR: 57 Rhythm: Sinus Technical Quality: Adequate MEASUREMENTS (Male / Female) Normal Values 2D ECHO LV Diastolic Diameter PLAX 4.0 cm 4.2 - 5.9 / 3.9 - 5.3 cm LV Systolic Diameter PLAX 3.1 cm IVS Diastolic Thickness 1.1 cm 0.6 - 1.0 / 0.6 - 0.9 cm IVS Systolic Thickness 1.3 cm LVPW Diastolic Thickness 1.1 cm 0.6 - 1.0 / 0.6 - 0.9 cm LVPW Systolic Thickness 1.4 cm LVOT Diameter 2.0 cm LV Ejection Fraction 2D Teich 45.4 % LV Ejection Fraction MOD 2C 68.3 % LV Ejection Fraction 2C AL 67.6 % LA Diameter 4.6 cm LA Width 3.9 cm LA Height 5.9 cm RA Width 3.4 cm RA Height 5.4 cm Aorta at Sinotubular Diameter 4.2 cm M-MODE LV Diastolic Diameter MM 5.6 cm 4.2 - 5.9 / 3.9 - 5.3 cm LV Systolic Diameter MM 3.5 cm LV Ejection Fraction MM Teich 67.4 % IVS Diastolic Thickness MM 1.8 cm 0.6 - 1.0 / 0.6 - 0.9 cm IVS Systolic Thickness MM 1.8 cm LVPW Diastolic Thickness MM 1.4 cm 0.6 - 1.0 / 0.6 - 0.9 cm LVPW Systolic Thickness MM 2.2 cm RV Diastolic Diameter MM 0.7 cm Aortic Annulus Diameter 4.9 cm LA Ao Ratio MM 1.1 MV E Point Septal Separation 1.1 cm DOPPLER AV Peak Velocity 137.0 cm/s LVOT Peak Velocity 115.0 cm/s AV Area Cont Eq vti 2.3 cm squared AV Area Cont Eq pk 2.7 cm squared MV Area PHT 3.5 cm squared Mitral E to A Ratio 0.9 MV E' Velocity 32.0 cm/s Mitral E to MV E' Ratio 6.6 Mitral E to LV E' Lateral Ratio 5.7 Mitral E to LV E' Septal Ratio 8.0 TR Peak Velocity 226.3 cm/s TR Peak Gradient 20.5 mmHg TV Peak E Velocity 82.0 cm/s Right Atrial Pressure 3.0 mmHg Pulmonary Artery Systolic Pressu 23.5 mmHg FINDINGS Left Ventricle Normal left ventricular cavity size. Normal left ventricular systolic function. No regional wall motion abnormalities. Left ventricular ejection fraction is estimated at 60 %. Grade I/IV diastolic dysfunction (abnormal relaxation filling pattern), normal to mildly elevated filling pressures. Right Ventricle The right ventricle is normal in size and function. Right Atrium The right atrium is normal in size. Left Atrium The left atrium is normal in size. Mitral Valve Thickened mitral valve. Mild mitral annular calcification. No mitral valve stenosis. Mild mitral valve regurgitation. Aortic Valve Moderate aortic valve calcification. No aortic valve stenosis. Moderate aortic valve regurgitation. Tricuspid Valve Structurally normal tricuspid valve without significant stenosis or regurgitation. Pulmonary artery systolic pressure is normal. Pulmonic Valve Structurally normal pulmonic valve without significant stenosis. There is no pulmonic regurgitation. Pericardium Normal pericardium without effusion. Aorta Normal ascending aorta dimension. CONCLUSIONS 1-Normal left ventricular cavity size. Normal left ventricular systolic function. No regional wall motion abnormalities. Left ventricular ejection fraction is estimated at 60 %. Grade I/IV diastolic dysfunction (abnormal relaxation filling pattern), normal to mildly elevated filling pressures. 2-Thickened mitral valve. Mild mitral annular calcification. No mitral valve stenosis. Mild mitral valve regurgitation. 3-Moderate aortic valve calcification. No aortic valve stenosis. Moderate aortic valve regurgitation. 4-Structurally normal tricuspid valve without significant stenosis or regurgitation. Pulmonary artery systolic pressure is normal. 5-There is no pericardial effusion. 6-Pulmonary artery systolic pressure is within normal limits. 7-Right atrial pressure is around 5 mm of mercury. 8-When compared to the prior echocardiogram dated June 14, 2013 there appeared to be a worsening of aortic valve regurgitation from mild to moderate now Mendez Jones MD (Electronically Signed) Final Date: 10 July 2020 18:59 S
--- NOTE | 2020-07-10 08:56 | PC.NURSE ---
REquested Dr. Lawton take a look at home med list.
[2020-07-10] MEDS: pantoprazole 40 mg SDV IVP (08:59)
--- NOTE | 2020-07-10 09:24 | PC.CHAP ---
Pastoral Care Encounter/Spiritual Assessment Type of Contact [] Declined cloth picker visit [] Patient/Family/Request visit [] Outpatient visit [] Follow-up visit [] Physician referral [] Code/Alert [] Routine visit [] Staff referral [] Actively dying [] Patient sleeping [] Family support [] [] Out of room [] Palliative care [] [] Receiving care in room [] Pre-surgical visit [] Trauma [] Long length of stay [] ICU visit [] Other: Relational/Emotional Strength [] Patient feels connected with others/family/visitors/staff [] Distress [] Loneliness/isolation [] Abandonment Spirituality of Patient [] Person of [place] [] Attends Yazidism of their [place] [] Believes in Prayer [] Reads Bible or Episcopalian materials [] There are Spiritual issues to be addressed Firer Automatic Stoker Interventions [x] Prayer [] Active listening [] Non-anxious presence [] Spiritual/emotional support [] Crisis/trauma care [] Spiritual counseling [] Bereavement support [] Provided bereavement packet [] Provided Bible/devotional materials [] Provided toy/stuffed animal, coloring book to patient or family member [] Provided Communion [] Anointing/[place] [] Salvation [x] Completed spiritual assessment [] Other: Impact on Illness or Injury [] Angry [] Fearful [] Anxious [] Often cries [] Exhaustion [] Unable to work [] Unable to attend shinto [] Unable to walk/stand [] Unable to read [] Unable to drive [] Unable to eat/drink [] Unable to sleep [] Unable to be with family [] Patient intubated [] Other: Summary Time spent with patient
[2020-07-10] MEDS: atorvastatin 40 mg Tablet PO (11:01)
[2020-07-10] MEDS: tamsulosin 0.4 mg Capsule PO (11:02)
[2020-07-10] MEDS: clopidogrel 75 mg Tablet PO (11:02)
[2020-07-10] MEDS: lisinopril 5 mg Tablet 2.5 MG PO (11:02)
--- NOTE | 2020-07-10 11:40 | P.PN_ITS ---
Subjective Subjective: Interval history: Patient reports feeling much better. He denies shortness of breath or chest pain but reports that he feels like it is difficult for him to take deep breath in. CTA yesterday showed no evidence of PE. Reports that he takes diltiazem for esophageal stricture as otherwise he is not able to eat. Reports that his heart rate always been in the 40s to low 50s. His heart rate this morning during my evaluation is in the low 60s. Blood pressure nicely improved and his dopamine is down to 1 mcg/min. Vitals/I&O/Wt Last Vital Signs Temp 97.9 F 07/10/20 04:15 Pulse 53 L 07/10/20 05:45 Resp 21 H 07/10/20 05:45 BP 127/69 07/10/20 05:45 Pulse Ox 96 07/10/20 05:45 07/09/20 07/10/20 07/10/20 22:59 06:59 14:59 Intake Total 290.265 / 2432.758 1140.390 / 3573.148 17.695 / 17.695 Output Total 600 / 600 650 / 1250 Balance -309.735 / 1832.758 490.390 / 2323.148 17.695 / 17.695 Weight last 48 hrs Weight 67.585 kg Weight 67.585 kg Weight 68.039 kg Physical Exam Const: COMMON NORMALS: no acute distress and patient oriented x3 Resp: COMMON NORMALS: normal respiratory effort and clear to auscultation bilaterally AUSCULTATION: clear to auscultation bilaterally Cardio: COMMON NORMALS: regular rate, regular rhythm and S2 normal heart sound present RATE: regular rate RHYTHM: regular rhythm HEART SOUNDS: S2 normal heart sound present OTHER: No lower extremity edema GI: COMMON NORMALS: Normal to inspection, nondistended, normoactive bowel sounds present, Soft to palpation and non-tender PALPATION: Yes Soft to palpation Neuro: COMMON NORMALS: patient oriented x3 and no focal motor deficits Urinary Catheter Management^: Tinajero: Cath Placed During This Visit: yes Reason for Continuing Indwelling Catheter: Acute Urinary Retention or Obstruction Urinary Catheter Date of Insertion: 07/09/20 Urinary Catheter Time of Insertion: 13:41 Data : 07/10/20 03:30 07/10/20 03:30 Micro: Microbiology 07/08/20 20:49 Blood Culture - Preliminary Blood NEGATIVE TO DATE 07/08/20 20:42 Blood Culture - Preliminary Blood NEGATIVE TO DATE A&P Assessment and plan (1) Acute dehydration: Status: Acute (2) Suspected 2019 novel coronavirus infection: With evidence of bilateral viral pneumonia Status: Acute (3) Altered mental status: Improved Status: Acute Qualifiers: Altered mental status type: unspecified Qualified Code(s): R41.82 - Altered mental status, unspecified (4) Sinus bradycardia: Multiple possible etiologies including PE and medication induced Status: Acute (5) Chronic kidney disease: Status: Acute (6) Acute kidney injury: Present on admission Status: Acute (7) Urinary retention due to benign prostatic hyperplasia: Present on admission Status: Acute (8) Hypokalemia: Not present on admission, secondary to IV hydration Status: Acute (9) Hypotension: Likely multifactorial with dehydration and possibly PE and medications playing a role. Status: Acute (10) Chest pain: Patient had chest pain prior to admission. GI versus cardiac currently co nsidered. Status: Acute (11) Acute respiratory failure with hypoxia: Status: Acute (12) Abdominal aortic aneurysm (AAA) 3.0 cm to 5.5 cm in diameter in male: 5.1 cm. Without evidence of dissection. Status: Acute Additional A&P Information PLAN: I will continue current monitoring and treatment. Wean off dopamine drip and will likely be able to start patient back on his diltiazem tomorrow or maybe try amlodipine instead. I will definitely keep patient off metoprolol. Awaiting COVID-19 test but at this point we will continue remdesivir and add dexamethasone as patient currently requires 2 L to saturate in the 90s. Attestations Medical Necessity Statement*: Patient with viral pneumonia and hypoxia as well as significant hypotension and bradycardic was close ICU monitoring and mohan tment. 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
[2020-07-10] MEDS: dexamethasone 4 mg/mL INJ 6 MG IVP (16:28)
[2020-07-10] MEDS: enoxaparin 30 mg/0.3 mL Syringe SUBCUT (16:28)
[2020-07-10] MEDS: HYDROcodone-acetaminophen 10-325 mg Tablet 1 TAB PO (21:23)
[2020-07-11] VITALS (16 sets, daily range): BP systolic 122–169; BP diastolic 77–109; PULSE 44–90; RESP 10–20; TEMP 36.2–36.4; O2SAT 92–98
[2020-07-11 03:38] LABS: Basophils % 0.1 %; Hematocrit 32.6 % (42.0-52.0); Hemoglobin 10.8 g/dL (11.7-16.6); Lymphocytes # 0.5 10^3/uL (0.8-4.8); Lymphocytes % 5.5 %; Mean Corpuscular HGB Conc 33.1 g/dL (30.0-36.0); Mean Corpuscular Hemoglobin 30.9 pg (28.0-34.0); Mean Corpuscular Volume 93.1 fL (80-94); Mean Platelet Volume 10.1 fL (7.4-10.4); Monocytes # 0.2 10^3/uL (0.2-0.9); Monocytes % 1.9 %; Neutrophils # 8.81 10^3/uL (1.8-7.7); Neutrophils % 91.8 %; Nucleated Red Blood Cells % 0 %; Platelet Count 258 10^3/cmm (130-400); Red Cell Distribution Width 13.4 % (12.1-15.1); White Blood Count 9.6 10^3/uL (4.0-10.0)
[2020-07-11 03:59] LABS: Alanine Aminotransferase 10 U/L (0-41); Albumin Level 2.9 g/dL (3.5-5.2); Alkaline Phosphatase 72 IU/L (40-130); Anion Gap 14.6 (5-19); Aspartate Amino Transferase 15 U/L (0-40); Blood Urea Nitrogen 28 mg/dL (8-23); Calcium 8.8 mg/dL (8.5-10.5); Carbon Dioxide 24 mmol/L (22-29); Chloride 104 mmol/L (98-107); Globulin 3.2 g/dL (1.3-4.6); Glucose 139 mg/dL (65-115); Magnesium 1.6 mg/dL (1.7-2.3); Osmolality Calculated 296 mOsm/kg (285-295); Potassium 3.6 mmol/L (3.5-5.1); Sodium 139 mmol/L (136-145); Total Bilirubin 0.5 mg/dL (0.15-1.2); Total Protein 6.1 g/dL (6.6-8.7)
[2020-07-11] MEDS: lactated ringers 1,000 ML 75 ML IV (06:16)
[2020-07-11] MEDS: HYDROcodone-acetaminophen 10-325 mg Tablet 1 TAB PO (06:49)
[2020-07-11] MEDS: magnesium sulfate premix 2 GM/50 ML PIGGYBACK IV (08:57)
[2020-07-11] MEDS: tamsulosin 0.4 mg Capsule PO (08:58)
[2020-07-11] MEDS: pantoprazole 40 mg SDV IVP (08:58)
[2020-07-11] MEDS: clopidogrel 75 mg Tablet PO (08:58)
[2020-07-11] MEDS: lisinopril 5 mg Tablet 2.5 MG PO (08:58)
[2020-07-11] MEDS: CLONazepam 1 mg Tablet PO (08:58)
[2020-07-11] MEDS: atorvastatin 40 mg Tablet PO (08:58)
[2020-07-11] MEDS: dexamethasone 4 mg/mL INJ 6 MG IVP (11:30)
--- NOTE | 2020-07-11 12:15 | P.DS_ITS ---
Discharge Providers Date of Admission: 07/09/20 09:33 Date of Discharge: July 11, 2020 Attending Provider at Admission: Jeffery Lawton MD Attending Provider at Discharge: Jeffery Lawton MD Primary Care Provider: Steven Ackerman MD Diagnoses at Discharge Discharge Diagnosis (1) Acute dehydration: Status: Acute Permanent problem details: Resolved (2) Suspected 2019 novel coronavirus infection: Status: Acute (3) Altered mental status: Status: Acute Qualifiers: Altered mental status type: unspecified Qualified Code(s): R41.82 - A ltered mental status, unspecified (4) Sinus bradycardia: Status: Acute Permanent problem details: Medication induced, improved (5) Chronic kidney disease: Status: Acute (6) Acute kidney injury: Status: Acute Permanent problem details: Prerenal secondary to dehydration. (7) Urinary retention due to benign prostatic hyperplasia: Status: Acute Permanent problem details: Ruled out. Patient had 250 mL out when Tinajero cath was placed. (8) Hypokalemia: Status: Acute (9) Hypotension: Status: Acute Permanent problem details: Resolved (10) Chest pain: Status: Acute Permanent problem details: Resolved (11) Acute respiratory failure with hypoxia: Status: Acute Permanent problem details: Present on admission. (12) Abdominal aortic aneurysm (AAA) 3.0 cm to 5.5 cm in diameter in male: Status: Acute Reason for Visit Reason for Visit: fever, no appetite, Hospital Course Hospital Course Patient presented with altered mental status and hypotension as well as bradycardia. Patient had evidence of dehydration and acute kidney injury. He required dopamine support initially along with IV fluids and his blood pressure gradually improved. His aishwarya blocking agents where placed on hold initially. Heart rate nicely recovered. Patient reports that he has been bradycardic for many years mostly in the 40s to low 50s. Reports that he needs to have diltiazem for esophageal dilation so he can eat. Diltiazem was restarted but metoprolol will be discontinued. Patient is asymptomatic and this morning reports feeling much better and adamantly wants to go home. Admits being generally weak but absolutely refuses to consider nursing facility placement. Reports that his is already on her way to take him home. We will remove Tinajero catheter and make sure patient can urinate. Discussed with RN this morning and it appears that patient only had 250 mL of urine out when Tinajero catheter was placed. Patient denies any difficulty with urination and is c urrently on Flomax. Patient reports that his chest pain completely resolved. He just recently had extensive cardiac evaluation and was told to make sure he follows up with cardiology doctor he saw previously and also discussed with his doctor regarding abdominal aortic aneurysm which will need to be closely watched. I think patient is a poor surgical candidate. Patient agreed to have home health for physical therapy as well as to make sure he takes his medications as prescribed. His COVID-19 test is still negative but CT scan was highly suggestive of viral pneumonia. Patient does not want to stay until tomorrow to receive his last dose of remdesivir. I will continue patient on dexamethasone for 5 more days. Overall patient reports feeling much better. Reports his oral intake improved. Patient was told to immediately come back if he starts feeling worse. Patient takes lisinopril 2.5 mg daily and since we are discontinuing metoprolol I increased lisinopril to 5 mg daily. Patient to keep blood pressure and heart rate log 3 times daily to present to primary care physician next visit for medication adjustment. Since there is a possibility of patient's chest pain being GI in etiology and since patient is being treated with steroids I will change PPI to Protonix for better protection. We will perform home O2 evaluation prior to discharge. Physical Exam Const: COMMON NORMALS: no acute distress and patient oriented x3 Resp: COMMON NORMALS: normal respiratory effort and clear to auscultation bilaterally AUSCULTATION: clear to auscultation bilaterally Cardio: COMMON NORMALS: regular rate, regular rhythm and S2 normal heart sound present RATE: regular rate RHYTHM: regular rhythm HEART SOUNDS: S2 normal heart sound present OTHER: No lower extremity edema GI: COMMON NORMALS: Normal to inspection, nondistended, normoactive bowel sounds present, Soft to palpation and non-tender PALPATION: Yes Soft to palpation Neuro: COMMON NORMALS: patient oriented x3 and no focal motor deficits Urinary Catheter Management^: Tinajero: Cath Placed During This Visit: yes, but has since been removed by the nurse Reason for Continuing Indwelling Catheter: Decision to DC Catheter Urinary Catheter Date of Insertion: 07/09/20 Urinary Catheter Time of Insertion: 13:41 Date Urinary Catheter Removed: 07/11/20 Time Urinary Catheter Discontinued: 11:54 Discharge Data Data Completed and Pending: Completed Studies During Hospitalization Category Date Time Status CT angio chest PE protcl [id number] Rout ine Cat Scan 07/09/20 14:54 Completed XR chest 1V didi ble [id number] Stat Exams 07/08/20 20:20 Completed CV echo complete* [id number] Routine Ultrasound 07/10/20 07:00 Completed Pending at discharge Category Date Time Status Blood Culture Sta t Lab 07/08/20 20:49 Results Complete Blood Co unt w/Auto AM LABS Lab 07/12/20 04:00 Ordered Comprehensive Met abolic Panel AM LA BS Lab 07/12/20 04:00 Ordered Coronavirus Lab T est PTC Stat Lab 07/09/20 16:32 Received Magnesium AM LABS Lab 07/12/20 04:00 Ordered Labs from last 24 hours 07/11/20 07/11/20 03:17 03:17 WBC 9.6 RBC 3.50 L Hgb 10.8 L Hct 32.6 L MCV 93.1 MCH 30.9 MCHC 33.1 RDW 13.4 Plt Count 258 MPV 10.1 Neut % (Auto) 91.8 Lymph % (Auto) 5.5 Coffee % (Auto) 1.9 Eos % (Auto) 0.0 Baso % (Auto) 0.1 Neut # (Auto) 8.81 H Lymph # (Auto) 0.5 L Coffee # (Auto) 0.2 Eos # (Auto) 0.0 Baso # (Auto) 0.0 Nucleated RBC % (a uto) 0 Nucleated RBCs # 0.0 Sodium 139 Potassium 3.6 Chloride 104 Carbon Dioxide 24 Anion Gap 14.6 BUN 28 H Creatinine 1.0 GFR Calculation Not Reportable Glucose 139 H Calculated Osmolal ity 296 H Calcium 8.8 Magnesium 1.6 L Total Bilirubin 0.5 AST 15 ALT 10 Alkaline Phosphata se 72 Total Protein 6.1 L Albumin 2.9 L Globulin 3.2 Vitals: Last Vital Signs Temp 97.2 F L 07/11/20 04:00 Pulse 82 07/11/20 10:00 Resp 20 H 07/11/20 10:00 BP 133/93 07/11/20 10:00 Pulse Ox 95 07/11/20 10:00 Discharge Plan Discharge Patient Disposition: Home Health Service Condition: Stable Prescriptions: New dexamethasone 6 mg tablet 6 mg PO DAILY Qty: 5 RF: 0 lisinopril 5 mg Tablet 5 mg PO DAILY Qty: 30 RF: 0 pantoprazole [Protonix] 20 mg tablet,delayed release (DR/EC) 40 mg PO DAILY Qty: 60 RF: 0 Continued atorvastatin 40 mg Tablet 40 mg PO DAILY RF: 0 diltiazem HCl 180 mg Capsule,Extended Release 24 Hr 180 mg PO DAILY RF: 0 clonazepam 1 mg Tablet 1 mg PO DAILY RF: 0 Plavix 75 mg Tablet 75 mg PO DAILY RF: 0 [place] 10-325 mg Tablet 1 tab PO DIRECTED PRN (Reason: Pain) RF: 0 tamsulosin 0.4 mg Capsule 0.4 mg PO DAILY RF: 0 nitroglycerin 0.4 mg Tablet, Sublingual 0.4 mg SUBLINGUAL Q5M PRN (Reason: Chest Pain) RF: 0 Discontinued lisinopril 20 mg Tablet 25 mg PO DAILY RF: 0 metoprolol tartrate 25 mg Tablet 25 mg PO DAILY RF: 0 omeprazole 20 mg Tablet,Delayed Release (Dr/Ec) 20 mg PO DAILY RF: 0 Discharge Orders: Discharge Order (Routine); Ordered 07/11/20 Ordered By: Jeffery Lawton Referrals: Steven Ackerman MD [Primary Care Provider] - 4-7 days Discharge Diet: Advance as tolerated Discharge Activity: Increase activity as tolerated Activity Restrictions/Additional Instructions: Please call your doctor or present to emergency department if your condition worsens or you develop diarrhea, lightheadedness, fatigue or see blood in your stool or black stool. Please keep blood pressure and heart rate log 3 times daily to present to primary care physician next visit for medication adjustment. Please follow-up with your assembler for puller over hand early as possible and discussed regarding aortic aneurysm which was noted on our imaging and is at 5.1 cm. 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
--- NOTE | 2020-07-11 14:08 | PC.NURSE ---
Discharge instructions given to patient and . No further questions. stated home health nurse called her and informed her that patient was COVID positive. They both suspected that pt did have virus. Patient wheeled to private vehicle by this nurse. driving. Belongings, including glasses and hearing aids with patient.
--- NOTE | 2020-07-11 14:28 | PC.NURSE ---
COVID Positive Called [facility] to confirm positive results.
[2020-07-11 14:57] LABS: Coronavirus Lab Test PTC Positive
== END 2020-07-11 14:09 | disposition home health service (06) | DRG 177 ==
LOC: ER 07-09 09:17 → ICU 07-09 14:18
PROVIDERS: Emergency Medicine; Family Medicine; Admitting Provider Internal Medicine; Emergency Provider Emergency Medicine; PCP Family Medicine; Visit Provider Internal Medicine
DX: U07.1 COVID-19 (principal); J12.89 Other viral pneumonia; J96.01 Acute respiratory failure with hypoxia; F05 Delirium due to known physiological condition; E87.3 Alkalosis; N17.9 Acute kidney failure, unspecified; I71.4 Abdominal aortic aneurysm, without rupture; I95.9 Hypotension, unspecified; K22.4 Dyskinesia of esophagus; I12.9 Hypertensive chronic kidney disease with stage 1 through stage 4 chronic kidney disease, or unspecified chronic kidney disease; N18.9 Chronic kidney disease, unspecified; M43.17 Spondylolisthesis, lumbosacral region; Z96.659 Presence of unspecified artificial knee joint; Z87.891 Personal history of nicotine dependence; E86.0 Dehydration; R00.1 Bradycardia, unspecified; Z79.02 Long term (current) use of antithrombotics/antiplatelets; N40.0 Benign prostatic hyperplasia without lower urinary tract symptoms; E87.6 Hypokalemia
CPT/HCPCS: 12345; 36415; 36600; 51701; 51702; 71045; 71275; 80053; 80307; 81001; 82140; 82550; 82728; 82803; 83605; 83615; 83690; 83735; 84145; 84443; 84484; 85025; 85378; 85384; 85610; 86140; 87040; 87426; 87635; 87804; 93005; 93306; 94760; 96372; 96375; 99284; 99291; C9113; J1100; J1265; J1610; J1650; J3475; J7030; Q9967

== ENCOUNTER 2020-07-14 20:06 | Emergency (ER) | payer MEDICARE, MEDICAID, SELFPAY ==
[2020-07-14 20:36] VITALS: BP 122/84; PULSE 77; RESP 14; TEMP 36.3; O2SAT 93; BMI 19.2
--- NOTE | 2020-07-14 21:23 | ECG_ITS ---
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 Measurements Intervals [place] Rate: 65 P: 55 RI: 210 QRS: -22 QRSD: 78 T: 26 QT: 419 QTc: 436 Interpretive Statements SINUS RHYTHM WITH FIRST DEGREE AV BLOCK BORDERLINE LEFT AXIS DEVIATION [QRS AXIS < -20] NONSPECIFIC T-WAVE ABNORMALITY Compared to ECG 07/08/2020 21:42:12 First degree AV block now present Sinus bradycardia no longer present Possible ischemia no longer present T-wave abnormality still present Electronically Signed On 07-15-2020 11:19:37 COFFEE SOMMELIER by Micah Hodge M.D. [email or web address]
--- NOTE | 2020-07-14 21:23 | XRR_ITS ---
PROCEDURE INFORMATION: Exam: XR Chest, 1 View Exam date and time: 07/14/2020 9:25 PM Age: 79 years old Clinical indication: Chest pain; Additional info: Cp TECHNIQUE: Imaging protocol: XR of the chest Views: 1 view. COMPARISON: CR XR chest 1V portable [id number] 07/08/2020 8:26 PM FINDINGS: Lungs: Patchy peripheral ground-glass opacities in both lungs have improved since the prior study. Pleural space: Unremarkable. No pleural effusion. No pneumothorax. Heart/Mediastinum: Unremarkable. No cardiomegaly. Vasculature: Tortuous ectatic thoracic aorta. Bones/joints: Unremarkable. XR/XR chest 1V portable [id number] IMPRESSION: Improved multilobar pneumonia.
--- NOTE | 2020-07-14 21:33 | CTR_ITS ---
PROCEDURE INFORMATION: Exam: CT Head Without Contrast Exam date and time: 07/14/2020 10:29 PM Age: 79 years old Clinical indication: Altered mental status/memory loss; Confusion or disorientation; Additional info: AMS TECHNIQUE: Imaging protocol: Computed tomography of the head without contrast. Radiation optimization: All CT scans at this facility use at least one of these dose optimization techniques: automated exposure control; mA and/or kV adjustment per patient size (includes targeted exams where dose is matched to clinical indication); or iterative reconstruction. COMPARISON: No relevant prior studies available. RADIATION DOSE METRICS: Total DLP (mGy-cm): 704.12 FINDINGS: Brain: Moderate diffuse cortical volume loss. Moderate patchy hypodensities in supratentorial periventricular and subcortical white matter. No intracranial hemorrhage. Cerebral ventricles: No ventriculomegaly. Bones/joints: Unremarkable. No acute fracture. Paranasal sinuses: Fluid or mucus in the right sphenoid sinus. The other sinuses are clear. Mastoid air cells: Left mastoid effusion. Orbital cavity: Prior cataract surgery. Vasculature: No hyperdense artery. Soft tissues: Unremarkable. CT/CT head wo con* [id number] IMPRESSION: 1. No acute intracranial abnormality. 2. 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 Radiation Dose CTDIVOL = (mGy): DLP = 704.12 (mGy-cm)
[2020-07-14 21:54] LABS: Basophils % 0.3 %; Hematocrit 36.2 % (42.0-52.0); Hemoglobin 12.1 g/dL (11.7-16.6); Lymphocytes # 0.6 10^3/uL (0.8-4.8); Lymphocytes % 5.3 %; Mean Corpuscular HGB Conc 33.4 g/dL (30.0-36.0); Mean Corpuscular Hemoglobin 31.2 pg (28.0-34.0); Mean Corpuscular Volume 93.3 fL (80-94); Mean Platelet Volume 10.1 fL (7.4-10.4); Monocytes # 0.6 10^3/uL (0.2-0.9); Monocytes % 5.1 %; Neutrophils # 8.99 10^3/uL (1.8-7.7); Neutrophils % 83.3 %; Nucleated Red Blood Cells % 0 %; Platelet Count 371 10^3/cmm (130-400); Red Blood Count 3.88 10^6/uL (4.1-5.3); Red Cell Distribution Width 13.6 % (12.1-15.1); White Blood Count 10.8 10^3/uL (4.0-10.0)
[2020-07-14 22:09] LABS: INR 1.03 (0.8-1.2); Partial Thromboplastin Time 25.8 SECONDS (23.9-36.7)
[2020-07-14 22:14] LABS: Troponin(5th) Baseline 11 ng/L (0-15)
[2020-07-14 22:22] LABS: Alanine Aminotransferase 18 U/L (0-41); Albumin Level 3.7 g/dL (3.5-5.2); Alkaline Phosphatase 84 IU/L (40-130); Anion Gap 15.6 (5-19); Aspartate Amino Transferase 14 U/L (0-40); Blood Urea Nitrogen 39 mg/dL (8-23); Calcium 9.1 mg/dL (8.5-10.5); Carbon Dioxide 24 mmol/L (22-29); Chloride 102 mmol/L (98-107); Creatine Phosphokinase 24 U/L (39-308); Globulin 2.6 g/dL (1.3-4.6); Glucose 131 mg/dL (65-115); NT Pro B Type Natriuretic Pept 1434 pg/mL (0-450); Osmolality Calculated 297 mOsm/kg (285-295); Potassium 3.6 mmol/L (3.5-5.1); Sodium 138 mmol/L (136-145); Total Bilirubin 0.7 mg/dL (0.15-1.2); Total Protein 6.3 g/dL (6.6-8.7)
[2020-07-14 22:22] LABS: ABG PCO2 35.2 mmHg (35-45); ABG PH Result 7.44 (7.35-7.45); Arterial Blood Gas Hematocrit 35.6 % (42-52); Base Excess ABG 0.3 mmol/L (-2.0-2.0); Blood Gas Sample Site Brachial, left; Blood Gas Sample Type Arterial; HCO3 ABG 24.1 mmol/L (22-26); Oxygen Device ROOM AIR; PO2 ABG 71.9 mmHg (80.0-100.0)
--- NOTE | 2020-07-14 22:25 | ED_ITS ---
HPI - General Adult General: Chief complaint: General Medical Stated complaint: Confusion, Covid + Time Seen by Provider: 07/14/20 21:20 History of Present Illness: HPI narrative: 79-year-old gentleman hospitalized recently for COVID-19 illness. He was on vasopressors for a while due to hypotension. He went home on , 2 nights ago. He represents to the emergency department with continued altered mental status. His daughter states that he is confused, worse at night, walking around the house, saying strange things. He has not had any fever. He is not been overly short of breath. He is not had problems with low blood pressure to her knowledge. He has not eaten or maintain hydration well. Associated symptoms: Reports chest pain, confusion and palpitations; Deny dyspnea, headache(s), nausea, rash or vomiting Review of Systems Const: Denies: fever(s) or chills Eyes: Denies: change in vision ENMT: Denies: swelling of lips/tongue Card: Reports: chest pain and palpitations; Denies: irregular heart rhythm, edema, swelling of feet/ankles, dyspnea on exertion or orthopnea Resp: Denies: dyspnea, productive cough, non-productive cough or wheezing GI: Denies: abdominal pain, nausea, vomiting or hematochezia : Denies: difficulty urinating or hematuria Musc: Denies: neck pain or joint warmth Skin/Breast: Denies: rash or erythema Neuro: Reports: confusion; Denies: headache(s), dizziness, vertigo or seizure-like activity Psych: Denies: anxiety or auditory hallucinations [facility] ED PFSH: Medical History (Updated 07/14/20 @ 23:31 by Leonard Villalpando DO) Abdominal aortic aneurysm 3.2 cm in 2013 Abdominal aortic aneurysm (AAA) 3.0 cm to 5.5 cm in diameter in male Chronic kidney disease Dysphagia Responsive to Cardizem Hypertension Spondylolisthesis at L5-S1 level Surgical History History of total knee arthroplasty Hx of cataract surgery Hx of spinal fusion Status post cholecystectomy Family History Other CAD (coronary artery disease) Cancer Family history of premature coronary artery disease Stroke Social History Smoking and tobacco status: former smoker Alcohol intake: never Lives independently: Yes Household members: spouse Housing: House Marital status: Physical Exam Const: GENERAL APPEARANCE: well developed ORIENTATION/CONSCIOUSNESS: Yes oriented to person and Yes oriented to place; not oriented to time HENMT: COMMON NORMALS: normocephalic, external ears normal and Normal external nose present HEAD & SCALP: normocephalic FACE & SINUS: normal facial exam NOSE: Normal external nose present and No nasal discharge present EXTERNAL EAR: Yes external ears normal Eye: COMMON NORMALS: Equal, round and reactive pupils present, EOMs intact bilaterally and conjunctivae normal EYELID: eyelids normal CONJUNCTIVA: Yes conjunctivae normal PUPIL: Yes Equal, round and reactive pupils present Neck/C-Spine: GENERAL: No tracheal deviation Chest: COMMONS NORMALS: normal inspection of the chest CHEST: No tenderness Resp: COMMON NORMALS: clear to auscultation bilaterally EFFORT & INSPECTIO N: No tachypneic, No respiratory distress, No retractions, No uses accessory muscles and No tracheal deviation AUSCULTATION: clear to auscultation bilaterally, no rhonchi, no wheezes and lung sounds not diminished Cardio: COMMON NORMALS: regular rate and regular rhythm RATE: regular rate RHYTHM: regular rhythm HEART SOUNDS: no murmurs PERIPHERAL PULSES: radial pulses present GI: INSPECTION: No abdominal distension AUSCULTATION: No Hyperactive bowel sounds present and No Hypoactive bowel sounds present PALPATION: No Guarding due to palpation present (GI) and No Rigid due to palpation PERCUSSION: no dullness to percussion and no tympanic to percussion Neuro: SENSORIUM/ORIENTATION: Yes oriented to person, Yes oriented to place and No oriented to time Skin: COMMON NORMALS: no rashes or lesions noted GENERAL SKIN EXAM: no rashes or lesions noted Course Consultations: Consultation #1: akua Vital Signs: Vital signs: Vital Signs Temperature 97.4 F L 07/14/20 20:36 Pulse Rate 77 07/14/20 20:36 Respiratory Rate 14 07/14/20 20:36 Blood Pressure 122/84 07/14/20 20:36 Pulse Oximetry 93 07/14/20 20:36 MDM - General Adult MDM Narrative: Medical decision making narrative: CT is negative for acute change. Patient's vitals are stable here. Blood pressure 127/75. Blood gas showed no CO2 retention. White count is 10.8. Chest x-ray showed resolving pneumonitis. No definite reason for mild confusion other than slight dehydration with BUN of 39 and a creatinine of 1.1. He was given fluids here. He was offered observation admission, but the daughter chose to take the patient home. It was after the hospitalist evaluated the patient as well. Lab Data: Labs: Lab Results 07/14/20 07/14/20 07/14/20 Range/Units 21:37 21:37 21:37 WBC 10.8 H (4.0-10.0) 10^3/ uL RBC 3.88 L (4.1-5.3) 10^6/u L Hgb 12.1 (11.7-16.6) g/dL Hct 36.2 L (42.0-52.0) % MCV 93.3 (80-94) fL MCH 31.2 (28.0-34.0) pg MCHC 33.4 (30.0-36.0) g/dL RDW 13.6 (12.1-15.1) % Plt Count 371 (130-400) 10^3/c mm MPV 10.1 (7.4-10.4) fL Neut % (Auto) 83.3 % Lymph % (Auto) 5.3 % Garden % (Auto) 5.1 % Eos % (Auto) 0.0 % Baso % (Auto) 0.3 % Neut # (Auto) 8.99 H (1.8-7.7) 10^3/u L Lymph # (Auto) 0.6 L (0.8-4.8) 10^3/u L Garden # (Auto) 0.6 (0.2-0.9) 10^3/u L Eos # (Auto) 0.0 (0.0-0.8) 10^3/u L Baso # (Auto) 0.0 (0.0-0.1) 10^3/u L Nucleated RBC % (a uto) 0 % Nucleated RBCs # 0.0 /100WBC PT 13.80 (12.1-14.9) SECO NDS INR 1.03 (0.8-1.2) APTT 25.8 (23.9-36.7) SECO NDS Specimen Type Sample Site ABG pH (7.35-7.45) ABG pCO2 (35-45) mmHg ABG pO2 (80.0-100.0) mmH g ABG HCO3 (22-26) mmol/L ABG Base Excess (-2.0-2.0) mmol/ L Nathaniel Test Hematocrit (42-52) % O2 Delivery Device Gas Fitter Apprentice ID Sodium 138 (136-145) mmol/L Potassium 3.6 (3.5-5.1) mmol/L Chloride 102 (98-107) mmol/L Carbon Dioxide 24 (22-29) mmol/L Anion Gap 15.6 (5-19) BUN 39 H (8-23) mg/dL Creatinine 1.1 (0.7-1.2) mg/dL GFR Calculation Not Reportable Glucose 131 H (65-115) mg/dL Calculated Osmolal ity 297 H (285-295) mOsm/k g Calcium 9.1 (8.5-10.5) mg/dL Total Bilirubin 0.7 (0.15-1.2) mg/dL AST 14 (0-40) U/L ALT 18 (0-41) U/L Alkaline Phosphata se 84 (40-130) IU/L Creatine Kinase 24 L (39-308) U/L Troponin T Baselin e (0-15) ng/L Troponin T 120 Min [place] (0-15) ng/L Delta Troponin T (0-10) ABS# NT-Pro-B Natriuret Pep 1434 H (0-450) pg/mL Total Protein 6.3 L (6.6-8.7) g/dL Albumin 3.7 (3.5-5.2) g/dL Globulin 2.6 (1.3-4.6) g/dL 07/14/20 07/14/20 07/14/20 Range/Units 21:37 22:20 23:21 WBC (4.0-10.0) 10^3/ uL RBC (4.1-5.3) 10^6/u L Hgb (11.7-16.6) g/dL Hct (42.0-52.0) % MCV (80-94) fL MCH (28.0-34.0) pg MCHC (30.0-36.0) g/dL RDW (12.1-15.1) % Plt Count (130-400) 10^3/c mm MPV (7.4-10.4) fL Neut % (Auto) % Lymph % (Auto) % Garden % (Auto) % Eos % (Auto) % Baso % (Auto) % Neut # (Auto) (1.8-7.7) 10^3/u L Lymph # (Auto) (0.8-4.8) 10^3/u L Garden # (Auto) (0.2-0.9) 10^3/u L Eos # (Auto) (0.0-0.8) 10^3/u L Baso # (Auto) (0.0-0.1) 10^3/u L Nucleated RBC % (a uto) % Nucleated RBCs # /100WBC PT (12.1-14.9) SECO NDS INR (0.8-1.2) APTT (23.9-36.7) SECO NDS Specimen Type Arterial Sample Site Brachial, left ABG pH 7.44 (7.35-7.45) ABG pCO2 35.2 (35-45) mmHg ABG pO2 71.9 L (80.0-100.0) mmH g ABG HCO3 24.1 (22-26) mmol/L ABG Base Excess 0.3 (-2.0-2.0) mmol/ L Nathaniel Test N/a Hematocrit 35.6 L (42-52) % O2 Delivery Device Room air Gas Fitter Apprentice ID Hinja Sodium (136-145) mmol/L Potassium (3.5-5.1) mmol/L Chloride (98-107) mmol/L Carbon Dioxide (22-29) mmol/L Anion Gap (5-19) BUN (8-23) mg/dL Creatinine (0.7-1.2) mg/dL GFR Calculation Glucose (65-115) mg/dL Calculated Osmolal ity (285-295) mOsm/k g Calcium (8.5-10.5) mg/dL Total Bilirubin (0.15-1.2) mg/dL AST (0-40) U/L ALT (0-41) U/L Alkaline Phosphata se (40-130) IU/L Creatine Kinase (39-308) U/L Troponin T Baselin e 11 (0-15) ng/L Troponin T 120 [address] [place] 10.23 (0-15) ng/L Delta Troponin T -0.77 L (0-10) ABS# NT-Pro-B Natriuret Pep (0-450) pg/mL Total Protein (6.6-8.7) g/dL Albumin (3.5-5.2) g/dL Globulin (1.3-4.6) g/dL Discharge Plan Discharge Patient Disposition: Home Clinical Impression: Acute confusion, Acute dehydration Condition: Stable Prescriptions: No Action atorvastatin 40 mg Tablet 40 mg PO DAILY RF: 0 diltiazem HCl 180 mg Capsule,Extended Release 24 Hr 180 mg PO DAILY RF: 0 clonazepam 1 mg Tablet 1 mg PO DAILY RF: 0 Plavix 75 mg Tablet 75 mg PO DAILY RF: 0 [place] 10-325 mg Tablet 1 tab PO DIRECTED PRN (Reason: Pain) RF: 0 tamsulosin 0.4 mg Capsule 0.4 mg PO DAILY RF: 0 nitroglycerin 0.4 mg Tablet, Sublingual 0.4 mg SUBLINGUAL Q5M PRN (Reason: Chest Pain) RF: 0 Protonix 20 mg tablet,delayed release (DR/EC) 40 mg PO DAILY Qty: 60 RF: 0 lisinopril 5 mg Tablet 5 mg PO DAILY Qty: 30 RF: 0 dexamethasone 6 mg tablet 6 mg PO DAILY Qty: 5 RF: 0 Discharge Orders: Discharge Order (Routine); Ordered 07/14/20 Ordered By: Leonard Villalpando Referrals: Steven Ackerman MD [Primary Care Provider] - 4-7 days Discharge Diet: Advance as tolerated Discharge Activity: Increase activity as tolerated Patient Instructions: Dehydration (ED), Altered Mental Status (ED) Activity Restrictions/Additional Instructions: Return for worsening mental status despite treatment, fever greater than 100, shortness of breath, vomiting liquids or medications, other concerning symptoms. Coding Level of Care Code ED Centerless Grinding Machine Adjuster for Nasra Florian
[2020-07-14 22:48] LABS: Slide Review Slide Review Perform
[2020-07-14] MEDS: sodium chloride 0.9% 1,000 ML 999 ML IV (23:20)
--- NOTE | 2020-07-14 23:23 | ECG_ITS ---
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 Measurements Intervals [place] Rate: 56 P: 68 [place]: 212 QRS: 6 QRSD: 82 T: 57 QT: 439 QTc: 424 Interpretive Statements SINUS BRADYCARDIA WITH FIRST DEGREE AV BLOCK WITH OCCASIONAL SUPRAVENTRICULAR PREMATURE COMPLEXES SEPTAL MYOCARDIAL INFARCTION , OF INDETERMINATE AGE [40+ ms Q WAVE IN V1/V2] Compared to ECG 07/14/2020 21:29:48 Myocardial infarct finding now present Sinus rhythm no longer present T-wave abnormality no longer present Electronically Signed On 07-15-2020 19:12:17 GARAGE SUPERVISOR by Micah Hodge M.D. [email or web address]
[2020-07-14 23:49] LABS: Troponin 5 2HR 10.23 ng/L (0-15)
[2020-07-14 23:50] LABS: Troponin 5 2HR Delta -0.77 ABS# (0-10)
== END 2020-07-15 00:32 | disposition home or self-care (01) ==
PROVIDERS: Emergency Provider Emergency Medicine; PCP Family Medicine
DX: R41.0 Disorientation, unspecified (principal); E86.0 Dehydration; Z79.02 Long term (current) use of antithrombotics/antiplatelets; I10 Essential (primary) hypertension; Z87.891 Personal history of nicotine dependence; R07.9 Chest pain, unspecified
CPT/HCPCS: 12345; 36415; 36600; 70450; 71045; 80053; 82550; 82803; 83880; 84484; 85025; 85610; 85730; 93005; 96365; 99282; 99284; J7030

== ENCOUNTER → 2020-10-29 10:42 | Outpatient (BNVA) | payer MEDICARE, MEDICAID, SELFPAY | PROVIDERS: PCP Family Medicine; Referring Provider Family Medicine; Visit Provider Nurse Practitioner | DX: R41.3 Other amnesia (principal); Z86.16 Personal history of COVID-19; Z87.891 Personal history of nicotine dependence | CPT/HCPCS: 99204; 99205 ==

== ENCOUNTER 2020-11-06 07:55 | Outpatient (CLI) | payer MEDICARE, MEDICAID, SELFPAY ==
--- NOTE | 2020-11-06 12:37 | MR_ITS ---
WS: [id number] MRI HEAD WITHOUT CONTRAST TECHNIQUE: Sagittal T1, T2 axial, T2 axial FLAIR, axial and coronal T1 images, axial susceptibility w eighted imaging, axial diffusion weighted images, and coronal T2 images were obtained. 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 Ventricular system and basal cisterns are patent. Moderate to advanced small vessel changes with moderate parenchymal volume loss. Normal v ascular flow voids at the skull base. Opacification of the left greater than right mastoid air cells. Chronic lacunar infarcts involving the right caudate and right cerebellum. Small vessel changes in t he darnell. Moderate to advanced symmetric atrophy involving the temporal lobes and hippocampal formatio ns. Mild mucosal thickening in the paranasal sinuses. A few tiny foci of hemosiderin on the susceptib ility weighted images. Normal optic chiasm and pituitary infundibulum. Normal cavernous sinuses and Meckel's cave. Postopera tive changes in the upper cervical spine. MR/MR head wo con* [id number] IMPRESSION: 1. No evidence of restricted diffusion to suggest acute ischemia. 2. Moderate to advanced small vessel changes with moderate parenchymal volume loss. 3. Moderate to advanced symmetric atrophy involving the temporal lobes and hip pocampal formations. 4. Chronic lacunar infarcts in the right caudate and right cerebellum. 5. Opacification left greater than right mastoid air cells. Mild mucosal thick ening in the paranasal sinuses. 6. A few small scattered punctate foci of hemosiderin on the susceptibility we ighted images.
== END 2020-11-06 07:56 | disposition home or self-care (01) ==
LOC: RADWPI 08:00
PROVIDERS: PCP Family Medicine; Visit Provider Nurse Practitioner
DX: F03.90 Unspecified dementia, unspecified severity, without behavioral disturbance, psychotic disturbance, mood disturbance, and anxiety (principal); I63.81 Other cerebral infarction due to occlusion or stenosis of small artery; G31.9 Degenerative disease of nervous system, unspecified
CPT/HCPCS: 70551

== ENCOUNTER → 2020-12-24 15:04 | Outpatient (BNVA) | payer MEDICARE, MEDICAID, SELFPAY | PROVIDERS: PCP Family Medicine; Visit Provider Nurse Practitioner | DX: R41.3 Other amnesia (principal); R25.1 Tremor, unspecified; Z87.891 Personal history of nicotine dependence | CPT/HCPCS: 99213 ==

== ENCOUNTER → 2021-03-21 13:43 | Outpatient (BNVA) | payer MEDICARE, MEDICAID, SELFPAY | PROVIDERS: PCP Family Medicine; Visit Provider Nurse Practitioner | DX: R25.1 Tremor, unspecified (principal); W19.XXXA Unspecified fall, initial encounter; R51.9 Headache, unspecified; Z87.891 Personal history of nicotine dependence | CPT/HCPCS: 99213; 99214 ==

== ENCOUNTER 2021-03-29 11:24 | Outpatient (CLI) | payer MEDICARE, MEDICAID, SELFPAY ==
--- NOTE | 2021-03-29 15:30 | CT_ITS ---
WS: [id number] CT HEAD TECHNIQUE: Noncontrast CT of the head obtained from the skullbase to the vertex. CLINICAL INFORMATION: W19.XXXA - Unspecified fall, initial encounter COMPARISON: CT head July 14, 2020 and MRI October 2020 DLP: 992.[address] scans at [facility] use at least one of these dose optimization techniques: automat ed exposure control; mA and/or kV adjustment per patient size (includes targeted exams where dose is matched to clinical indication); or iterative reconstruction. FINDINGS: No evidence of intracranial hemorrhage or mass effect. Ventricular system and basal cisterns are solis nt. Moderate small vessel changes with moderate parenchymal volume loss. Chronic lacunar infarcts rig ht caudate and basal ganglia. Chronic lacunar infarct right cerebellum. Opacification left mastoid air cells. Right mastoid air cells well aerated. Mild mucosal thickening r ight mastoid tip. Paranasal sinuses are well aerated. CT/CT head wo con* [id number] IMPRESSION: 1. No evidence of intracranial hemorrhage or mass effect. 2. Moderate small vessel changes with moderate parenchymal volume loss. 3. Chronic lacunar infarcts right caudate and bilateral basal ganglia. These a re stable since the prior MRI. 4. Chronic lacunar infarct right cerebellum also unchanged. 5. Chronic opacification left mastoid air cells unchanged.
== END 2021-03-29 11:25 | disposition home or self-care (01) ==
PROVIDERS: PCP Family Medicine; Visit Provider Nurse Practitioner
DX: S09.90XA Unspecified injury of head, initial encounter (principal); W19.XXXA Unspecified fall, initial encounter; I63.81 Other cerebral infarction due to occlusion or stenosis of small artery
CPT/HCPCS: 70450

== ENCOUNTER → 2021-04-03 14:35 | Outpatient (BNVA) | payer MEDICARE, MEDICAID, SELFPAY | PROVIDERS: PCP Family Medicine; Referring Provider Optometrist; Visit Provider Specialist | DX: S62.102A Fracture of unspecified carpal bone, left wrist, initial encounter for closed fracture (principal); X58.XXXA Exposure to other specified factors, initial encounter; Z46.89 Encounter for fitting and adjustment of other specified devices; S52.592D Other fractures of lower end of left radius, subsequent encounter for closed fracture with routine healing; X58.XXXD Exposure to other specified factors, subsequent encounter | CPT/HCPCS: 73110; 97760; L3982 ==

== ENCOUNTER 2021-04-03 16:39 | Outpatient (CLI) | payer MEDICARE, MEDICAID, SELFPAY | END 2021-04-03 16:40 | disposition home or self-care (01) | LOC: SPT 16:40 | PROVIDERS: PCP Family Medicine; Visit Provider Specialist | DX: Z46.89 Encounter for fitting and adjustment of other specified devices (principal); S52.592D Other fractures of lower end of left radius, subsequent encounter for closed fracture with routine healing; X58.XXXD Exposure to other specified factors, subsequent encounter | CPT/HCPCS: 97760; L3982 ==

== ENCOUNTER → 2021-04-22 13:22 | Outpatient (BNVA) | payer MEDICARE, MEDICAID, SELFPAY | PROVIDERS: PCP Family Medicine; Visit Provider Specialist | DX: S62.102A Fracture of unspecified carpal bone, left wrist, initial encounter for closed fracture (principal); S52.502A Unspecified fracture of the lower end of left radius, initial encounter for closed fracture; S52.602A Unspecified fracture of lower end of left ulna, initial encounter for closed fracture; W19.XXXA Unspecified fall, initial encounter | CPT/HCPCS: 73110 ==